=== PATIENT | female | born 1955 ===

== ENCOUNTER 2017-09-10 05:41 | Inpatient (IN) | payer MEDICARE, OTHER ==
[~2017-09-10] VITALS: Ht 149.9 cm; Wt 76.2 kg
[2017-09-10] VITALS (29 sets, daily range): BP systolic 72–126; BP diastolic 36–85
[~2017-09-10 05:41] MED LIST: ASPIR 8181 MG ORAL; ATORVASTATIN CA20 MG ORAL; FUROSEMIDE20 M1 ORAL; GABAPENTIN100 MG ORAL; HYDROCHLOROTHIA25 MG ORAL; LANTUS SOL100 UNIT/1 SUBQ; OMEPRAZOLE20 M2 ORAL; VICTOZA 2-0.6 MG/0.1 SUBQ
[2017-09-10] MEDS ORDERED: Propofol 200mg/20ml IV ONE (06:54)
[2017-09-10] MEDS ORDERED: Dexamethasone 4mg/ml vial ONE (06:54)
[2017-09-10] MEDS ORDERED: EPINEPHrine 1mg/1ml Amp ONE (06:54)
[2017-09-10] MEDS ORDERED: cloNIDine 1000mcg/10ml inj ONE (06:54)
[2017-09-10] MEDS ORDERED: Lidocaine 1% MPF 10mg/ml 5ml ONE (06:54)
[2017-09-10] MEDS ORDERED: Midazolam 2mg/2ml Inj ONE (06:55)
[2017-09-10] MEDS ORDERED: fentaNYL 100 mcg/2 mL IV ONE (06:55)
[2017-09-10] MEDS ORDERED: NeoSporin Gu Irrig 1ml Amp IRRIG ONE (06:56)
[2017-09-10] MEDS ORDERED: Bacitracin 50000 Units Vial ONE (06:56)
--- NOTE | 2017-09-10 07:05 | Pre-Procedure Note/Attestation ---
Pre-Procedure Note/Attestation Complete Prior to Procedure Planned Procedure: right Procedure Narrative: right knee replacement Indications for Procedure Pre-Operative Diagnosis: right knee arthritis Attestation I attest that I discussed the nature of the procedure; its benefits; risks and complications; and alternatives (and the risks and benefits of such alternatives ), prior to the procedure, with the patient (or the patient's legal front office representative). I attest that, if there was a reasonable possibility of needing a blood transfusion, the patient (or the patient's legal front office representative) was given the [facility] standardized written summary, pursuant to the Zeke Dontrell Blood Safety Act ([place] Health and Safety Code # 1645, as amended). I attest that I re-evaluated the patient just prior to the surgery and that there has been no change in the patient's H&P, except as documented below: BRAD GO Sep 10, 2017 07:05
--- NOTE | 2017-09-10 07:06 | Anethesia Preoperative Eval ---
Anesthesia Pre-op PMH/ROS General Date of Evaluation: Sep 10, 2017 Anesthesiologist: Jose ASA Score: ASA 2 Mallampati Score Class I : Soft palate, uvula, fauces, pillars visible Class II: Soft palate, uvula, fauces visible Class III: Soft palate, base of uvula visible Class IV: Only hard plate visible Mallampati Classification: Class II Surgeon: Brooks Diagnosis: Right knee OA Surgical Procedure: Right total knee replacement Anesthesia History: none Family History: no anesthesia problems Allergies: Coded Allergies: No Known Allergies (Unverified , 09/09/17) Medications: see eMAR Past Medical History Cardiovascular: Reports: HTN, other - HLD; Denies: CAD, CA, valve dz, arrhythmia Pulmonary: Denies: asthma, COPD, LYNDA, other Gastrointestinal/Genitourinary: Reports: GERD; Denies: CRI, ESRD, other Neurologic/Psychiatric: Reports: depression/anxiety; Denies: dementia, CVA, TIA, other Endocrine: Reports: DM; Denies: hypothyroidism, steroids, other HEENT: Denies: cataract (L), cataract (R), glaucoma, [place] (L), [place] (R), other Hematology/Immune: Denies: anemia, DVT, bleeding disorder, other Musculoskeletal/Integumentary: Reports: OA; Denies: RA, DJD, DDD, edema, other PSxH Narrative: gastric banding, hysterectomy Anesthesia Pre-op Phys. Exam Physician Exam Last Vital Signs Date Time Temp Pulse Resp B/P (MAP) Pulse Ox O2 Delivery O2 Flow Rate FiO2 09/10/17 06:53 98.7 59 18 126/76 98 Room Air 98.7 Constitutional: NAD Cardiovascular: RRR Respiratory: CTA Airway Exam Mallampati Score: Class II MO: full ROM: full Teeth: missing, broken, loose Anesthesia Pre-op A/P Labs see chart Studies Pre-op Studies: EKG - SB Risk Assessment & Plan Assessment: ASA II Plan: GA with SAB Status Change Before Surgery: No Pre-Antibiotics Drug: Ancef 1g Given Within 1 Hr of Incision: Yes Time Given: 08:00 TORRIE VAUGHAN M.D. Sep 10, 2017 07:06
[2017-09-10] MEDS ORDERED: Morphine Sulfate PF 10 ML ONE (07:10)
[2017-09-10] MEDS ORDERED: Zemuron 50mg/5ml Inj IV ONE (07:10)
[2017-09-10] MEDS ORDERED: Morphine Sulfate 2mg/ml Inj IVP PRN ×2 (07:15)
[2017-09-10] MEDS ORDERED: Morphine Sulfate 4mg/ml Inj IVP PRN (07:15)
[2017-09-10] MEDS ORDERED: HYDROcodone/Acetamin 7.5/325 tab ORAL PRN (07:15)
[2017-09-10] MEDS ORDERED: LR 1000ml 1,000 ML IVLG SCH (07:40)
--- NOTE | 2017-09-10 07:41 | Immediate Post-Op Evaluation ---
Immediate Post-Op Evalulation Immediate Post-Op Evalulation Procedure: Right TKR Date of Evaluation: Sep 10, 2017 Time of Evaluation: 10:24 IV Fluids: 2L Blood Products: 0 Estimated Blood Loss: 300 Urinary Output: 250 Blood Pressure Systolic: 89 Blood Pressure Diastolic: 46 Pulse Rate: 62 Respiratory Rate: 16 O2 Sat by Pulse Oximetry: 99 Temperature (Fahrenheit): 97.9 Pain Score (1-10): 0 Nausea: No Vomiting: No Complications 0 Patient Status: awake, reacts, patent, none Hydration Status: adequate Drug: Ancef 1g Given Within 1 Hr of Incision: Yes Time Given: 08:00 TORRIE VAUGHAN M.D. Sep 10, 2017 07:41
--- NOTE | 2017-09-10 07:42 | 48 Hour Post Anesthesia Eval ---
Post Anesthesia Evaluation Procedure: Right TKR Date of Evaluation: Sep 10, 2017 Airway: patent Nausea: No Vomiting: No Pain Intensity: 0 Hydration Status: adequate Cardiopulmonary Status: at baseline Mental Status/LOC: patient returned to baseline Post-Anesthesia Complications: 0 Follow-up care needed: N/A - further care as per primary team TORRIE VAUGHAN M.D. Sep 10, 2017 07:42
[2017-09-10] MEDS ORDERED: Hydromorphone 0.5mg/0.5ml inj IVP PRN (07:45)
[2017-09-10] MEDS ORDERED: fentaNYL 100 mcg/2 mL IV PRN (07:45)
[2017-09-10] MEDS ORDERED: DiphenhydrAMINE 50mg/ml Inj IVP PRN (07:45)
--- NOTE | 2017-09-10 09:36 | Diagnostic Imaging Report ---
Indication: Pain Technique: XRAY Knee 3v R Comparison: None Findings: There is no evidence of acute fracture. There is degenerative change of the knee with joint space narrowing most pronounced in the medial femorotibial and patellofemoral compartment. There is subchondral sclerosis and tricompartmental osteophyte formation. Multiple loose bodies are noted. There is no large suprapatellar joint effusion. No radiopaque foreign body seen. IMPRESSION: No acute fracture. Degenerative change of the right knee with multiple loose bodies as above.
[2017-09-10] MEDS ORDERED: Bacitracin Oint 15gm Tube TOPIC ONE (10:05)
[2017-09-10] MEDS ORDERED: HYDROcodone/Acetamin 10/325 tab ORAL PRN (15:00)
[2017-09-10] MEDS ORDERED: traMADol 50mg tab ORAL PRN ×2 (15:00)
[2017-09-10] MEDS ORDERED: oxyCODONE 5mg IR tab ORAL PRN ×3 (15:00→15:15)
[2017-09-10] MEDS ORDERED: Morphine Sulfate 4mg/ml Inj IM PRN (15:00)
[2017-09-10] MEDS ORDERED: D5 1/2NS w/KCl 20mEq 1,000 ML IV SCH ×2 (15:30→18:30)
[2017-09-10] MEDS ORDERED: Chloraseptic Spray 20mL Bottle ORAL PRN (16:00)
[2017-09-10] MEDS ORDERED: Sodium Chloride 500ML 500 ML IV ONE (16:15)
--- NOTE | 2017-09-10 16:15 | Consultation ---
DATE OF CONSULTATION: 09/10/2017 CONSULTING PHYSICIAN: Massimo Moore M.D. REFERRING PHYSICIAN: Derrek Guy M.D. REASON FOR CONSULTATION: Acute pain management. HISTORY OF PRESENT ILLNESS: Dear, Dr. Derrek Guy, Thank you kindly for consulting me to evaluate and render an opinion as to how to proceed in the management of the patient's acute postoperative right knee pain status post right total knee arthroplasty. You consulted me to help with this patient's pain control. I reviewed the medical record in detail including advance directives. I saw the patient at bedside. I discussed the case with yourself, Dr. Guy. PAST MEDICAL HISTORY: 1. Acute postoperative right knee pain status post right total knee arthroplasty by Dr. Guy August 2017. 2. Hypertension. 3. Hypercholesterolemia. 4. Gastroesophageal reflux disease. 5. Diabetes. PAST SURGICAL HISTORY: Gastric banding and hysterectomy. ALLERGIES: No known drug allergies. FAMILY HISTORY: Noncontributory. REVIEW OF SYSTEMS: Per Dr. Villalta. PHYSICAL EXAMINATION: VITAL SIGNS: Age 62, , body mass index 31. Blood pressure 96/40, respirations 16, oxygen saturation 100% on supplemental nasal cannula oxygen, pulse 54, afebrile. HEENT: Within normal limits. Normocephalic and atraumatic. HEART: Positive S4. Normal S1 and S2. CHEST: Clear to auscultation. EXTREMITIES: Right knee with dry dressing. Pain with range of motion. GENITOURINARY: Deferred to Dr. Villalta. DIAGNOSTIC TESTING: Laboratory studies in the medical record. IMPRESSION: 1. Acute postoperative right knee pain status post right total knee arthroplasty by Dr. Guy August 2017. 2. . 3. Hypercholesterolemia. 4. Gastroesophageal reflux disease. 5. Diabetes. TREATMENT RECOMMENDATIONS: I have set up a tiered regimen of analgesics to help with pain control. I will start with Ultram 50 mg orally every 8 hours p.r.n. for mild pain. I have ordered [place] 10/325 one tablet orally every three hours p.r.n. for moderate pain. I have ordered oxycodone instant release 5 mg orally every three hours p.r.n. for more severe pain. For 10/10 breakthrough pain, I have also ordered intramuscular dose of morphine 4 mg q.3 hours p.r.n. In case of any headache complaints, I have ordered Fioricet tablets one tablet orally every 8 hours p.r.n. I have also ordered Chloraseptic spray bottle to the bedside to help with any sore throat complaints postoperatively. I have empirically placed the patient on Protonix 40 mg nightly for GI ulcer prophylaxis. I have also ordered p.r.n. dose of Mylanta 30 mL q.6 hours in case of any GERD symptom exacerbation. I have ordered Zofran 4 mg intravenously every four hours as needed for nausea. I have ordered incentive spirometer to encourage good pulmonary toilet. In case of any itching complaints, I have ordered Benadryl 20 mg every 6 hours p.r.n. I will defer the patient's blood pressure and diabetic issues to the hospitalist, Dr. Villalta. Dr. Guy, surgeon has already placed the patient on chemical anticoagulation with 40 mg subcutaneous daily. The patient is at significant risk for deep venous thrombosis and pulmonary embolism complications due to the nature of the surgery. Massimo Moore M.D. DR: Joselito JOB#: [id number] CC:
--- NOTE | 2017-09-10 16:55 | Diagnostic Imaging Report ---
Indication: Pain. Postop Technique: XRAY Knee 1-2v R Comparison: Earlier the same day. Findings: Status post right total knee arthroplasty. Alignment is anatomic. No hardware-related complication is identified. The majority of the previously seen loose bodies are no longer evident. Some loose bodies are still noted projecting adjacent to the lateral tibial talar. Subcutaneous gas and evie are compatible with recent surgery. IMPRESSION: Expected postoperative appearance status post recent right total knee arthroplasty.
[2017-09-10 17:13] LABS: HEMATOCRIT 33.8 % (37.0-47.0); HEMOGLOBIN 11.9 G/DL (12.0-16.0); MEAN CORPUSCULAR VOLUME 92 FL (80-99); PLATELET COUNT 171 K/UL (150-450); RED BLOOD COUNT 3.69 M/UL (4.20-5.40); RED CELL DISTRIBUTION WIDTH 11.8 % (11.6-14.8); WHITE BLOOD COUNT 12.2 K/UL (4.8-10.8)
[2017-09-10 17:15] LABS: BASOPHILS % (AUTO) 0.2 % (0.0-2.0); LYMPHOCYTES % (AUTO) 9.3 % (20.0-45.0); MONOCYTES % (AUTO) 1.8 % (1.0-10.0); NEUTROPHILS % (AUTO) 88.7 % (45.0-75.0)
[2017-09-10] MEDS: ceFAZolin sod 1 GM in D5W 55 ML IV SCH (17:33)
[2017-09-10 17:34] LABS: ANION GAP 9 mmol/L (5-15); BLOOD UREA NITROGEN 11 mg/dL (7-18); CALCIUM 9.3 MG/DL (8.5-10.1); CARBON DIOXIDE 27 MMOL/L (21-32); CHLORIDE 104 MMOL/L (98-107); CREATININE 0.6 MG/DL (0.55-1.30); POTASSIUM 3.8 MMOL/L (3.5-5.1); SODIUM 139 MMOL/L (136-145)
[2017-09-10 17:38] LABS: ALANINE AMINOTRANSFERASE 42 U/L (12-78); ALBUMIN/GLOBULIN RATIO 1.1 (1.0-2.7); ALKALINE PHOSPHATASE 96 U/L (46-116); ASPARTATE AMINO TRANSFERASE 27 U/L (15-37); BILIRUBIN,TOTAL 0.7 MG/DL (0.2-1.0)
[2017-09-10] MEDS: Docusate 100mg/10ml Liq NG SCH (18:12)
--- NOTE | 2017-09-10 20:41 | Cardiology Progress Note ---
Assessment/Plan Assessment/Plan [id number] Objective Last 24 Hour Vital Signs Date Time Temp Pulse Resp B/P (MAP) Pulse Ox O2 Delivery O2 Flow Rate FiO2 09/10/17 18:24 73 106/52 09/10/17 17:54 66 93/41 Room Air 100.0 09/10/17 17:38 64 97/50 09/10/17 17:23 71 83/51 09/10/17 17:08 68 83/45 09/10/17 16:53 70 87/59 09/10/17 16:00 97.5 63 18 95/59 95 97.5 09/10/17 15:25 58 86/49 09/10/17 15:25 97.5 94 18 84/54 Room Air 95.0 97.5 09/10/17 15:00 97.5 61 17 99/45 100 Room Air 97.5 09/10/17 14:30 54 16 96/40 100 Nasal Cannula 3.0 09/10/17 14:15 55 16 85/42 100 Nasal Cannula 3.0 09/10/17 14:00 52 15 82/43 100 Nasal Cannula 3.0 09/10/17 13:30 54 18 76/42 100 Nasal Cannula 3.0 09/10/17 13:15 58 16 77/40 100 Nasal Cannula 3.0 09/10/17 13:00 53 15 72/36 100 Nasal Cannula 3.0 09/10/17 12:45 56 17 75/85 100 Nasal Cannula 3.0 09/10/17 12:30 59 18 80/42 100 Nasal Cannula 3.0 09/10/17 12:15 45 17 90/43 100 Nasal Cannula 3.0 09/10/17 12:00 50 16 96/46 100 Nasal Cannula 3.0 09/10/17 11:45 49 18 87/48 100 Nasal Cannula 3.0 09/10/17 11:30 51 16 91/43 100 Nasal Cannula 3.0 09/10/17 11:15 48 15 95/46 100 Nasal Cannula 3.0 09/10/17 11:00 50 19 86/45 100 Nasal Cannula 3.0 09/10/17 10:45 55 16 93/43 100 Nasal Cannula 6.0 09/10/17 10:30 64 17 90/40 100 Nasal Cannula 2.0 09/10/17 10:25 78 15 106/54 100 Simple Mask 6.0 09/10/17 10:23 208.2 62 16 99 09/10/17 10:19 97.9 67 16 89/40 99 Simple Mask 6.0 97.9 09/10/17 06:53 98.7 59 18 126/76 98 Room Air 98.7 Intake and Output 09/09/17 09/10/17 19:00 07:00 # Voids 1 Laboratory Tests Test 09/10/17 17:00 White Blood Count 12.2 K/UL (4.8-10.8) H Red Blood Count 3.69 M/UL (4.20-5.40) L Hemoglobin 11.9 G/DL (12.0-16.0) L Hematocrit 33.8 % (37.0-47.0) L Mean Corpuscular Volume 92 FL (80-99) Mean Corpuscular Hemoglobin 32.1 PG (27.0-31.0) H Mean Corpuscular Hemoglobin Concent 35.1 G/DL (32.0-36.0) Red Cell Distribution Width 11.8 % (11.6-14.8) Platelet Count 171 K/UL (150-450) Mean Platelet Volume 6.7 FL (6.5-10.1) Neutrophils (%) (Auto) 88.7 % (45.0-75.0) H Lymphocytes (%) (Auto) 9.3 % (20.0-45.0) L Monocytes (%) (Auto) 1.8 % (1.0-10.0) Eosinophils (%) (Auto) 0.0 % (0.0-3.0) Basophils (%) (Auto) 0.2 % (0.0-2.0) Sodium Level 139 MMOL/L (136-145) Potassium Level 3.8 MMOL/L (3.5-5.1) Chloride Level 104 MMOL/L (98-107) Carbon Dioxide Level 27 MMOL/L (21-32) Anion Gap 9 mmol/L (5-15) Blood Urea Nitrogen 11 mg/dL (7-18) Creatinine 0.6 MG/DL (0.55-1.30) Estimat Glomerular Filtration Rate > 60 mL/min (>60) Glucose Level 194 MG/DL (74-106) H Calcium Level 9.3 MG/DL (8.5-10.1) Total Bilirubin 0.7 MG/DL (0.2-1.0) Aspartate Amino Transf (AST/SGOT) 27 U/L (15-37) Alanine Aminotransferase (ALT/SGPT) 42 U/L (12-78) Alkaline Phosphatase 96 U/L (46-116) Total Protein 5.7 G/DL (6.4-8.2) L Albumin 3.0 G/DL (3.4-5.0) L Globulin 2.7 g/dL Albumin/Globulin Ratio 1.1 (1.0-2.7) CARMEN ENCISO Sep 10, 2017 20:41
[2017-09-10] MEDS: NovoLOG Insulin Flexpen SUBQ SCH (22:12)
[2017-09-10] MEDS: HYDROcodone/Acetamin 10/325 tab ORAL PRN (23:52)
[2017-09-11] MEDS: ceFAZolin sod 1 GM in D5W 55 ML IV SCH (00:16)
[2017-09-11 00:30] VITALS: BP 105/51
--- NOTE | 2017-09-11 01:30 | Consultation ---
DATE OF CONSULTATION: 09/10/2017 CARDIOLOGY CONSULTATION CONSULTING PHYSICIAN: Peyman Villalta M.D. REFERRING PHYSICIAN: Derrek William M.D. REASON FOR EVALUATION: Hypotension. HISTORY OF PRESENT ILLNESS: This is a middle-aged female, 62-year-old, who has had history of multiple medical problems including diabetes mellitus. Information from her is obtained from one of the staff here at [facility] who speaks M[place]ese. She apparently has had knee surgery that was performed by Dr. Real rodriguez. Postoperatively, she was noted to have some episodes of hypotension and therefore, this consultation was requested. The patient absolutely denies any chest pain at this time. No PND. No orthopnea. No palpitation. No dizziness or lightheadedness. PAST MEDICAL HISTORY: Positive for diabetes mellitus, positive for high blood pressure. No high cholesterol. No history of heart attack, although previously on evaluation at her doctor's office, she was told that she may have had previously heart attack. No history of cancer. No stroke. No hepatitis. No tuberculosis. No asthma. No emphysema. She has had history of gastric ulcers that was diagnosed. She has had gastric bypass surgery. She has had obesity for which this gastric sleeve resulted in approximately 80 pounds of weight loss. No kidney problems. She has fatty liver. No thyroid problems. No anemia. No arthritis. She has had prior gastric bypass surgery. ALLERGIES: She is not allergic to any medications. SOCIAL HISTORY: She does smoke 4 cigarettes a day. Does not drink alcoholic beverages. REVIEW OF SYSTEMS: GASTROINTESTINAL: She denies any nausea or vomiting. No bowel movements yesterday. GENITOURINARY: Negative. PULMONARY: Negative. CONSTITUTIONAL: Negative. NEUROLOGICAL: Negative. PHYSICAL EXAMINATION: GENERAL: Shows to be middle-aged female, in no respiratory distress. She is lying down flat. The CPM machine on the right leg, working its way. NECK: Supple. No jugular venous distention. LUNGS: Clear to auscultation and percussion. CARDIAC: S1 is normal. S2 is normal. Regular rate and rhythm. No heaves, thrills, gallops, or rubs noted. ABDOMEN: Soft. Positive bowel sounds. Nontender. Obese. Bowel sounds are present. EXTREMITIES: There is no edema. She has dressing on the right leg. CPM machine is being used on the right leg. NEUROLOGICAL: Awake, alert, responsive, and in no apparent respiratory distress. LABORATORY VALUES: Because of her low blood pressure, I had given her some boluses of IV fluids and ordered some labs. The labs show white count of 12.2 with hemoglobin 11.9, and platelet count of 171,000. Sodium 139, potassium 3.8, chloride 104, bicarbonate 27, BUN of 11, creatinine 0.6, and glucose of 194. Calcium is 9.3 and albumin of 3.0. Preoperative labs were reviewed. Her electrocardiogram shows normal sinus rhythm, no ST or T-wave abnormalities being documented. ASSESSMENT AND PLAN: 1. Hypotension, volume-related. 2. Diabetes mellitus. 3. History of hypertension. 4. Obesity, status post gastric bypass surgery. 5. Status post knee replacement. 6. Hyperlipidemia. Dr. Noble, this patient was seen in cardiac consultation. The patient absolutely denies any chest pain or shortness of breath. No cardiovascular symptoms at this time. Blood pressure being on low side possibly was related to volume depletion. The patient is on combination of hydrochlorothiazide and diuretic for some reason as an outpatient, both and also has been on insulin. She has already been restarted on diet, so she will be started on her usual doses of medications now that she has been started on diet. Her aspirin will be on hold. Her diuretics of course will be on hold and boluses of IV fluids administered already. Laboratories will be repeated in the morning as well to make sure there is no drop in hemoglobin to suggest anemia as a cause of hypokalemia, although I doubt that that is the case. I will follow the patient along with you. Peyman Villalta M.D. DR: ADIS JOB#: [id number] CC:
[2017-09-11 04:00] VITALS: BP 101/60
[2017-09-11] MEDS: NovoLOG Insulin Flexpen SUBQ SCH ×4 (06:30→21:32)
[2017-09-11 06:56] LABS: BASOPHILS % (AUTO) 0.4 % (0.0-2.0); HEMOGLOBIN 10.5 G/DL (12.0-16.0); LYMPHOCYTES % (AUTO) 24.2 % (20.0-45.0); MEAN CORPUSCULAR VOLUME 91 FL (80-99); MONOCYTES % (AUTO) 8.4 % (1.0-10.0); PLATELET COUNT 162 K/UL (150-450); RED BLOOD COUNT 3.17 M/UL (4.20-5.40); RED CELL DISTRIBUTION WIDTH 11.7 % (11.6-14.8); WHITE BLOOD COUNT 11.2 K/UL (4.8-10.8)
[2017-09-11 07:16] LABS: INR 1.1 (0.9-1.1)
[2017-09-11 07:24] LABS: ALANINE AMINOTRANSFERASE 45 U/L (12-78); ALBUMIN 2.8 G/DL (3.4-5.0); ALBUMIN/GLOBULIN RATIO 1.2 (1.0-2.7); ALKALINE PHOSPHATASE 89 U/L (46-116); ANION GAP 7 mmol/L (5-15); ASPARTATE AMINO TRANSFERASE 29 U/L (15-37); BILIRUBIN,TOTAL 0.8 MG/DL (0.2-1.0); BLOOD UREA NITROGEN 11 mg/dL (7-18); CARBON DIOXIDE 28 MMOL/L (21-32); CHLORIDE 107 MMOL/L (98-107); CREATININE 0.5 MG/DL (0.55-1.30); POTASSIUM 3.4 MMOL/L (3.5-5.1); SODIUM 142 MMOL/L (136-145)
[2017-09-11 08:00] VITALS: BP 93/50
[2017-09-11] MEDS: Docusate 100mg/10ml Liq NG SCH ×2 (09:25→18:01)
[2017-09-11] MEDS: Enoxaparin 40mg Inj SUBQ SCH (09:26)
[2017-09-11] MEDS: Morphine Sulfate 4mg/ml Inj IM PRN ×3 (09:41→19:43)
[2017-09-11 12:00] VITALS: BP 99/59
--- NOTE | 2017-09-11 13:27 | 48 Hour Post Anesthesia Eval ---
Post Anesthesia Evaluation Procedure: Right TKR Date of Evaluation: Sep 11, 2017 Time of Evaluation: 13:26 Blood Pressure Systolic: 104 0: 62 Pulse Rate: 74 Respiratory Rate: 22 Temperature (Fahrenheit): 97.6 O2 Sat by Pulse Oximetry: 98 Airway: patent Nausea: No Vomiting: No Pain Intensity: 3 Hydration Status: adequate Cardiopulmonary Status: STABLE Mental Status/LOC: patient returned to baseline Follow-up Care/Observations: n/a Post-Anesthesia Complications: none Follow-up care needed: N/A EMMA MARQUES M.D. Sep 11, 2017 13:27
[2017-09-11] MEDS ORDERED: Potassium Chloride 40 MEQ in Sodium Chloride 500ML 550 ML IVPB SCH (14:30)
[2017-09-11 16:00] VITALS: BP 103/59
--- NOTE | 2017-09-11 19:00 | Cardiology Progress Note ---
Assessment/Plan Assessment/Plan 1. Hypotension, volume-related. 2. Diabetes mellitus. 3. History of hypertension. 4. Obesity, status post gastric bypass surgery. 5. Status post knee replacement. 6. Hyperlipidemia. bp is better to day stillkeep off antihypertesnive hgb mildy decreased has been up with pt already has sat up in the chair bs were lelvated lstntie now better on icc victoza not avialbe her is eatign well PT home soon diabetic diet Subjective Cardiovascular: Denies: chest pain, lightheadedness, palpitations Respiratory: Denies: SOB with excertion Gastrointestinal/Abdominal: Reports: constipated; Denies: abdominal pain Genitourinary: Denies: burning Subjective post op pain Objective Last 24 Hour Vital Signs Date Time Temp Pulse Resp B/P (MAP) Pulse Ox O2 Delivery O2 Flow Rate FiO2 09/11/17 16:00 99.3 80 20 103/59 100 Room Air 99.3 09/11/17 13:27 207.7 74 22 98 09/11/17 12:00 98.6 67 18 99/59 99 Room Air 98.6 09/11/17 08:00 98.1 68 18 93/50 97 Room Air 98.1 09/11/17 04:00 98.3 72 19 101/60 100 Room Air 98.3 09/11/17 00:51 97.5 09/11/17 00:30 97.5 62 18 105/51 99 Room Air 97.5 09/10/17 23:52 98.2 09/10/17 20:00 98.2 63 20 110/50 99 Room Air 98.2 General Appearance: no apparent distress, alert, obese Neck: supple Cardiovascular: normal rate, regular rhythm Respiratory/Chest: lungs clear, normal breath sounds Abdomen: normal bowel sounds, non tender, soft Extremities: no swelling, other - right knee dressed Intake and Output 09/10/17 09/11/17 19:00 07:00 Intake Total 1647.5 ml 1180 ml Output Total 500 ml Balance 1147.5 ml 1180 ml Intake Oral 580 ml IV Total 1067.5 ml 1180 ml Output Urine Total 500 ml Laboratory Tests Test 09/11/17 06:20 White Blood Count 11.2 K/UL (4.8-10.8) H Red Blood Count 3.17 M/UL (4.20-5.40) L Hemoglobin 10.5 G/DL (12.0-16.0) L Hematocrit 29.0 % (37.0-47.0) L Mean Corpuscular Volume 91 FL (80-99) Mean Corpuscular Hemoglobin 33.0 PG (27.0-31.0) H Mean Corpuscular Hemoglobin Concent 36.1 G/DL (32.0-36.0) H Red Cell Distribution Width 11.7 % (11.6-14.8) Platelet Count 162 K/UL (150-450) Mean Platelet Volume 6.8 FL (6.5-10.1) Neutrophils (%) (Auto) 67.0 % (45.0-75.0) Lymphocytes (%) (Auto) 24.2 % (20.0-45.0) Monocytes (%) (Auto) 8.4 % (1.0-10.0) Eosinophils (%) (Auto) 0.0 % (0.0-3.0) Basophils (%) (Auto) 0.4 % (0.0-2.0) Prothrombin Time 11.4 SEC (9.30-11.50) Prothromb Time International Ratio 1.1 (0.9-1.1) Sodium Level 142 MMOL/L (136-145) Potassium Level 3.4 MMOL/L (3.5-5.1) L Chloride Level 107 MMOL/L (98-107) Carbon Dioxide Level 28 MMOL/L (21-32) Anion Gap 7 mmol/L (5-15) Blood Urea Nitrogen 11 mg/dL (7-18) Creatinine 0.5 MG/DL (0.55-1.30) L Estimat Glomerular Filtration Rate > 60 mL/min (>60) Glucose Level 114 MG/DL (74-106) H Calcium Level 9.0 MG/DL (8.5-10.1) Total Bilirubin 0.8 MG/DL (0.2-1.0) Aspartate Amino Transf (AST/SGOT) 29 U/L (15-37) Alanine Aminotransferase (ALT/SGPT) 45 U/L (12-78) Alkaline Phosphatase 89 U/L (46-116) Total Protein 5.2 G/DL (6.4-8.2) L Albumin 2.8 G/DL (3.4-5.0) L Globulin 2.4 g/dL Albumin/Globulin Ratio 1.2 (1.0-2.7) CARMEN ENCISO Sep 11, 2017 19:00
[2017-09-11 20:00] VITALS: BP 113/65
[2017-09-11] MEDS: HYDROcodone/Acetamin 10/325 tab ORAL PRN (21:30)
[2017-09-12 00:03] VITALS: BP 108/54
[2017-09-12 04:00] VITALS: BP 130/70
[2017-09-12 05:56] LABS: BASOPHILS % (AUTO) 0.7 % (0.0-2.0); EOSINOPHILS % (AUTO) 0.2 % (0.0-3.0); HEMATOCRIT 29.1 % (37.0-47.0); HEMOGLOBIN 10.1 G/DL (12.0-16.0); LYMPHOCYTES % (AUTO) 33.3 % (20.0-45.0); MEAN CORPUSCULAR VOLUME 94 FL (80-99); MONOCYTES % (AUTO) 10.5 % (1.0-10.0); NEUTROPHILS % (AUTO) 55.2 % (45.0-75.0); PLATELET COUNT 137 K/UL (150-450); RED CELL DISTRIBUTION WIDTH 11.9 % (11.6-14.8); WHITE BLOOD COUNT 8.6 K/UL (4.8-10.8)
[2017-09-12] MEDS: Morphine Sulfate 4mg/ml Inj IM PRN ×4 (05:58→23:46)
[2017-09-12] MEDS: NovoLOG Insulin Flexpen SUBQ SCH ×4 (06:30→20:07)
[2017-09-12] MEDS ORDERED: Chloraseptic Spray 20mL Bottle ORAL ONE (07:54)
[2017-09-12] MEDS ORDERED: HYDROcodone/Acetamin 10/325 tab ORAL ONE (07:54)
[2017-09-12 08:00] VITALS: BP 106/62
[2017-09-12] MEDS: Docusate 100mg/10ml Liq NG SCH ×2 (08:35→17:31)
[2017-09-12] MEDS: Enoxaparin 40mg Inj SUBQ SCH (08:39)
[2017-09-12] MEDS ORDERED: Chloraseptic Spray 20mL Bottle ORAL PRN (10:00)
[2017-09-12 12:00] VITALS: BP 121/83
--- NOTE | 2017-09-12 12:15 | Progress Note ---
DATE: 09/12/2017 ACUTE PAIN MANAGEMENT PHYSICIAN PROGRESS NOTE MEDICATIONS: Medication administration record reviewed. Medications include Fioricet, Mylanta, Catapres, Benadryl, Colace, Lovenox, Pepcid, Neurontin, [place], diabetic medications including insulin, morphine, NicoDerm patch, Zofran, Roxicodone, Protonix, Chloraseptic, Ultram. LABORATORY STUDIES: From this morning, September 12, 2017, shows normal white count of 9, hematocrit 29, platelets 137,000. Sodium 142, potassium 3.4, chloride 107, bicarbonate 28, BUN 11, creatinine 0.5, glucose 114, calcium 9.0, total bilirubin 0.8, AST 29, ALT 45, alkaline phosphatase 89, total protein 5.2, albumin 2.8. INR 1.0. VITAL SIGNS: T-max 100.1 last night at 8 p.m., currently 99.0, pulse 92, respirations 17, blood pressure 130/70, oxygen saturation 98% on room air. I saw the patient at the bedside with Citizen [place]-speaking speech teacher. The patient's also was present at the bedside providing good social support. The patient is more alert and oriented x3. I discussed the case with the overnight nurse, ALDEN Smith. The patient received doses of morphine and [place] overnight. The patient has been making very poor progress with physical therapy. She is very poorly motivated to ambulate. She does not seem to have any adverse side effects with [place] and morphine. Therefore, I would continue these two agents presently. I did encourage the patient to request the medications more frequently. Her last dose of morphine was two hours ago with her last dose of [place] over 10 hours ago. Oxycodone could be trialed as well. I will discontinue orders for tramadol. The patient is complaining of sore throat. I will ask the nurse to place a Chloraseptic spray bottle at the bedside. I will continue her morphine dose as ordered currently. She remains on b.i.d. Neurontin. Dr. Guy has the patient on Lovenox for DVT prophylaxis. I have ordered nicotine patch for nicotine-withdrawal agitation, which may be exacerbating her pain complaint. I did encourage aggressive usage of incentive spirometer with her low-grade fever overnight. Her normal white count suggests that her fevers are contributed by postoperative atelectasis and chronic obesity. I will provide a prescription for for outpatient usage. Massimo Moore M.D. DR: Marii JOB#: [id number] CC:
[2017-09-12 16:00] VITALS: BP 140/97
--- NOTE | 2017-09-12 18:35 | Cardiology Progress Note ---
Assessment/Plan Assessment/Plan 1. Hypotension, volume-related. 2. Diabetes mellitus. 3. History of hypertension. 4. Obesity, status post gastric bypass surgery. 5. Status post knee replacement. 6. Hyperlipidemia. bp is ok still keep off antihypertesnive hgb mildy decreased bs 109-219 on iss victoza not avialbe here PT home soon diabetic diet antiemetic stool softer , mom tonite last iv pain med this am per rn liquid vicoden is not avialbe here pain meds are given per dr gorman she looks comfortable has not asked of extra pain meds per rn since this am nutritonal supplemt glucerna if not eat linzess not availabel here d/w rn Subjective Subjective she say her pain is controlled , she apparently has had liquid vicoden before after ther gastric by pass which helped her she want to get that but that is not available per pharmacy poor appetite has walked in halls no bm i have reviiewed she has no special diet on consistency Objective Last 24 Hour Vital Signs Date Time Temp Pulse Resp B/P (MAP) Pulse Ox O2 Delivery O2 Flow Rate FiO2 09/12/17 16:00 99.6 82 18 140/97 97 Room Air 99.6 09/12/17 12:21 98.6 09/12/17 12:00 98.6 79 19 121/83 96 Room Air 98.6 09/12/17 11:51 99.0 09/12/17 09:19 99.0 09/12/17 08:20 99.0 09/12/17 08:00 100.6 91 19 106/62 94 Room Air 100.6 09/12/17 04:00 99.0 92 17 130/70 98 Room Air 99.0 09/12/17 00:03 99.2 85 17 108/54 96 Room Air 99.2 09/11/17 20:00 101.1 90 19 113/65 99 Room Air 101.1 General Appearance: no apparent distress, alert Neck: supple Cardiovascular: normal rate, regular rhythm Respiratory/Chest: lungs clear Abdomen: normal bowel sounds, non tender, soft Extremities: no swelling Intake and Output 09/11/17 09/12/17 19:00 07:00 Intake Total 1625 ml 425 ml Output Total 1500 ml Balance 125 ml 425 ml Intake Oral 300 ml IV Total 1625 ml 125 ml Output Urine Total 1500 ml # Voids 3 Laboratory Tests Test 09/12/17 05:00 White Blood Count 8.6 K/UL (4.8-10.8) Red Blood Count 3.10 M/UL (4.20-5.40) L Hemoglobin 10.1 G/DL (12.0-16.0) L Hematocrit 29.1 % (37.0-47.0) L Mean Corpuscular Volume 94 FL (80-99) Mean Corpuscular Hemoglobin 32.5 PG (27.0-31.0) H Mean Corpuscular Hemoglobin Concent 34.7 G/DL (32.0-36.0) Red Cell Distribution Width 11.9 % (11.6-14.8) Platelet Count 137 K/UL (150-450) L Mean Platelet Volume 6.9 FL (6.5-10.1) Neutrophils (%) (Auto) 55.2 % (45.0-75.0) Lymphocytes (%) (Auto) 33.3 % (20.0-45.0) Monocytes (%) (Auto) 10.5 % (1.0-10.0) H Eosinophils (%) (Auto) 0.2 % (0.0-3.0) Basophils (%) (Auto) 0.7 % (0.0-2.0) Prothrombin Time 10.6 SEC (9.30-11.50) Prothromb Time International Ratio 1.0 (0.9-1.1) Microbiology Date/Time Source Procedure Growth Status 09/10/17 06:35 Nasal Nares MRSA Culture - Final NO METHICILLIN RESISTANT STAPH AUREUS... Complete CARMEN ENCISO Sep 12, 2017 18:35
[2017-09-12] MEDS ORDERED: Milk of Magnesia 30ml Ud ORAL ONE (19:00)
[2017-09-12 20:00] VITALS: BP 118/71
[2017-09-12] MEDS ORDERED: NS 500ML ONE (20:41)
[2017-09-12] MEDS ORDERED: Tubing IV Secondary IV ONE (20:41)
[2017-09-13] VITALS: BP 127/73
[2017-09-13 04:00] VITALS: BP 130/78
[2017-09-13] MEDS: NovoLOG Insulin Flexpen SUBQ SCH ×4 (06:21→20:51)
[2017-09-13 07:39] LABS: HEMOGLOBIN 9.8 G/DL (12.0-16.0); MEAN CORPUSCULAR VOLUME 94 FL (80-99); MONOCYTES % (AUTO) 8.8 % (1.0-10.0); NEUTROPHILS % (AUTO) 47.1 % (45.0-75.0); PLATELET COUNT 138 K/UL (150-450); RED BLOOD COUNT 2.99 M/UL (4.20-5.40); RED CELL DISTRIBUTION WIDTH 11.8 % (11.6-14.8); WHITE BLOOD COUNT 8.4 K/UL (4.8-10.8)
[2017-09-13 07:43] LABS: ALANINE AMINOTRANSFERASE 36 U/L (12-78); ALBUMIN 2.4 G/DL (3.4-5.0); ALBUMIN/GLOBULIN RATIO 0.8 (1.0-2.7); ALKALINE PHOSPHATASE 94 U/L (46-116); ANION GAP 4 mmol/L (5-15); ASPARTATE AMINO TRANSFERASE 27 U/L (15-37); BILIRUBIN,TOTAL 0.7 MG/DL (0.2-1.0); BLOOD UREA NITROGEN 6 mg/dL (7-18); CALCIUM 8.5 MG/DL (8.5-10.1); CARBON DIOXIDE 30 MMOL/L (21-32); CHLORIDE 108 MMOL/L (98-107); CREATININE 0.4 MG/DL (0.55-1.30); POTASSIUM 3.7 MMOL/L (3.5-5.1); SODIUM 142 MMOL/L (136-145)
[2017-09-13 08:00] VITALS: BP 132/70
[2017-09-13] MEDS: Docusate 100mg/10ml Liq NG SCH ×2 (08:57→18:00)
[2017-09-13] MEDS: HYDROcodone/Acetamin 10/325 tab ORAL PRN ×2 (08:58→18:39)
[2017-09-13] MEDS: Enoxaparin 40mg Inj SUBQ SCH (08:59)
[2017-09-13] MEDS: Morphine Sulfate 4mg/ml Inj IM PRN ×3 (10:12→22:34)
[2017-09-13 12:47] VITALS: BP 104/50
[2017-09-13 16:00] VITALS: BP 108/61
[2017-09-13] MEDS ORDERED: Milk of Magnesia 30ml Ud ORAL ONE (16:15)
[2017-09-13] MEDS ORDERED: Magnesium Citrate Liq Btl ORAL ONE (16:15)
[2017-09-13] MEDS ORDERED: Magnesium Citrate Liq Btl ORAL PRN ×2 (16:45→20:45)
[2017-09-13] MEDS ORDERED: Milk of Magnesia 30ml Ud ORAL PRN (16:45)
[2017-09-13 20:00] VITALS: BP 130/68
--- NOTE | 2017-09-13 22:36 | Cardiology Progress Note ---
Assessment/Plan Assessment/Plan comofrtable \pain under control laxatives Subjective Subjective The patient is resting in bed leg is elevated compalining on constipation Objective Last 24 Hour Vital Signs Date Time Temp Pulse Resp B/P (MAP) Pulse Ox O2 Delivery O2 Flow Rate FiO2 09/13/17 22:34 98.1 09/13/17 20:13 98.1 09/13/17 16:00 98.1 78 19 108/61 Room Air 98.1 09/13/17 12:47 98.1 80 20 104/50 98 Room Air 98.1 09/13/17 08:00 98.6 75 20 132/70 97 Room Air 98.6 09/13/17 04:00 98.0 73 18 130/78 96 Room Air 98.0 09/13/17 00:00 98.1 90 18 127/73 97 Room Air 98.1 General Appearance: no apparent distress EENT: PERRL/EOMI Neck: supple Rhythm: NSR Cardiovascular: normal rate Respiratory/Chest: lungs clear Abdomen: soft Extremities: other - right leg post op, elevated Intake and Output 09/12/17 09/13/17 19:00 07:00 Intake Total 2435 ml 1500 ml Output Total 200 ml Balance 2235 ml 1500 ml Intake Oral 810 ml IV Total 1625 ml 1500 ml Output Urine Total 200 ml # Voids 3 2 Laboratory Tests Test 09/13/17 06:30 White Blood Count 8.4 K/UL (4.8-10.8) Red Blood Count 2.99 M/UL (4.20-5.40) L Hemoglobin 9.8 G/DL (12.0-16.0) L Hematocrit 28.0 % (37.0-47.0) L Mean Corpuscular Volume 94 FL (80-99) Mean Corpuscular Hemoglobin 32.7 PG (27.0-31.0) H Mean Corpuscular Hemoglobin Concent 34.8 G/DL (32.0-36.0) Red Cell Distribution Width 11.8 % (11.6-14.8) Platelet Count 138 K/UL (150-450) L Mean Platelet Volume 7.1 FL (6.5-10.1) Neutrophils (%) (Auto) 47.1 % (45.0-75.0) Lymphocytes (%) (Auto) 42.0 % (20.0-45.0) Monocytes (%) (Auto) 8.8 % (1.0-10.0) Eosinophils (%) (Auto) 1.0 % (0.0-3.0) Basophils (%) (Auto) 1.0 % (0.0-2.0) Prothrombin Time 10.1 SEC (9.30-11.50) Prothromb Time International Ratio 1.0 (0.9-1.1) Sodium Level 142 MMOL/L (136-145) Potassium Level 3.7 MMOL/L (3.5-5.1) Chloride Level 108 MMOL/L (98-107) H Carbon Dioxide Level 30 MMOL/L (21-32) Anion Gap 4 mmol/L (5-15) L Blood Urea Nitrogen 6 mg/dL (7-18) L Creatinine 0.4 MG/DL (0.55-1.30) L Estimat Glomerular Filtration Rate > 60 mL/min (>60) Glucose Level 119 MG/DL (74-106) H Calcium Level 8.5 MG/DL (8.5-10.1) Total Bilirubin 0.7 MG/DL (0.2-1.0) Aspartate Amino Transf (AST/SGOT) 27 U/L (15-37) Alanine Aminotransferase (ALT/SGPT) 36 U/L (12-78) Alkaline Phosphatase 94 U/L (46-116) Total Protein 5.3 G/DL (6.4-8.2) L Albumin 2.4 G/DL (3.4-5.0) L Globulin 2.9 g/dL Albumin/Globulin Ratio 0.8 (1.0-2.7) L Zonia Romo MD Sep 13, 2017 22:36
[2017-09-14] VITALS: BP 119/68
[2017-09-14 04:00] VITALS: BP 127/76
[2017-09-14] MEDS: NovoLOG Insulin Flexpen SUBQ SCH ×4 (06:30→20:58)
[2017-09-14] MEDS: Morphine Sulfate 4mg/ml Inj IM PRN ×2 (06:33→21:00)
[2017-09-14 08:00] VITALS: BP 105/84
[2017-09-14] MEDS: Docusate 100mg/10ml Liq NG SCH ×2 (09:00→17:40)
[2017-09-14] MEDS: Enoxaparin 40mg Inj SUBQ SCH (09:10)
[2017-09-14] MEDS: HYDROcodone/Acetamin 10/325 tab ORAL PRN ×2 (09:13→13:35)
[2017-09-14 12:00] VITALS: BP 105/84
[2017-09-14 16:00] VITALS: BP 102/59
--- NOTE | 2017-09-14 17:36 | Cardiology Report ---
APPROVED REPORT EKG Measurement Heart [id number] Normal sinus rhythm with sinus arrhythmia Normal ECG
[2017-09-14 18:00] LABS: ANION GAP 5 mmol/L (5-15); BLOOD UREA NITROGEN 9 mg/dL (7-18); CALCIUM 8.4 MG/DL (8.5-10.1); CARBON DIOXIDE 30 MMOL/L (21-32); CHLORIDE 107 MMOL/L (98-107); CREATININE 0.5 MG/DL (0.55-1.30); POTASSIUM 3.6 MMOL/L (3.5-5.1); SODIUM 142 MMOL/L (136-145)
[2017-09-14 20:17] VITALS: BP 123/73
--- NOTE | 2017-09-14 21:34 | Cardiology Progress Note ---
Assessment/Plan Assessment/Plan continue physical therapy Subjective Subjective Tfeels better, eating lunchm, had 3 bm lst night after Mg citrate walked today Objective Last 24 Hour Vital Signs Date Time Temp Pulse Resp B/P (MAP) Pulse Ox O2 Delivery O2 Flow Rate FiO2 09/14/17 20:17 98.4 84 20 123/73 99 98.4 09/14/17 16:00 98.1 81 18 102/59 99 98.1 09/14/17 14:34 98.0 09/14/17 13:35 98.0 09/14/17 12:00 98.0 69 18 105/84 99 98.0 09/14/17 09:13 98.2 09/14/17 08:00 98.2 78 19 105/84 98 98.2 09/14/17 07:03 97.8 09/14/17 06:33 97.8 09/14/17 04:00 97.8 78 20 127/76 98 97.8 09/14/17 00:00 98.1 72 20 119/68 96 98.1 09/13/17 22:34 98.1 General Appearance: no apparent distress EENT: PERRL/EOMI Neck: non-tender Rhythm: NSR Cardiovascular: normal rate Respiratory/Chest: lungs clear Abdomen: normal bowel sounds Extremities: other - right knee dressing, mild LE edema Intake and Output 09/13/17 09/14/17 19:00 07:00 Intake Total 845 ml 1570 ml Output Total 302 ml Balance 543 ml 1570 ml Intake Oral 220 ml 320 ml IV Total 125 ml 1250 ml Tube Feeding 500 ml Output Urine Total 302 ml Stool Total 0 ml # Voids 4 # Bowel Movements 3 Laboratory Tests Test 09/14/17 07:20 09/14/17 17:28 Prothrombin Time 10.0 SEC (9.30-11.50) Prothromb Time International Ratio 1.0 (0.9-1.1) Sodium Level 142 MMOL/L (136-145) Potassium Level 3.6 MMOL/L (3.5-5.1) Chloride Level 107 MMOL/L (98-107) Carbon Dioxide Level 30 MMOL/L (21-32) Anion Gap 5 mmol/L (5-15) Blood Urea Nitrogen 9 mg/dL (7-18) Creatinine 0.5 MG/DL (0.55-1.30) L Estimat Glomerular Filtration Rate > 60 mL/min (>60) Glucose Level 167 MG/DL (74-106) H Calcium Level 8.4 MG/DL (8.5-10.1) L Zonia Romo MD Sep 14, 2017 21:34
[2017-09-15 00:31] VITALS: BP 120/68
[2017-09-15 04:52] VITALS: BP 141/73
[2017-09-15] MEDS: NovoLOG Insulin Flexpen SUBQ SCH ×4 (06:13→21:00)
[2017-09-15 08:00] VITALS: BP 130/71
[2017-09-15] MEDS: Docusate 100mg/10ml Liq NG SCH ×2 (08:34→17:50)
[2017-09-15] MEDS: Enoxaparin 40mg Inj SUBQ SCH (08:35)
[2017-09-15] MEDS: Morphine Sulfate 4mg/ml Inj IM PRN ×2 (09:03→15:03)
--- NOTE | 2017-09-15 10:51 | Cardiology Report ---
APPROVED REPORT EXAM: Two-dimensional and M-mode echocardiogram with Doppler and color Doppler. INDICATION Post-Op M-Mode DIMENSIONS IVSd1.1 (0.7-1.1cm)Left Atrium (MM)4.0 (1.6-4.0cm) LVDd4.4 (3.5-5.6cm)Aortic Root2.7 (2.0-3.7cm) PWd0.8 (0.7-1.1cm)Aortic Cusp Exc.1.8 (1.5-2.0cm) LVDs2.6 (2.5-4.0cm) PWs1.2 cm Normal left ventricular chamber size, systolic function and wall motion. Left ventricular ejection fraction estimated to be 55 %. Borderline left ventricular hypertrophy. Anterior Echo-free space, may be due to pericardial fat or effusion. All other cardiac chamber sizes are within normal limits. Focal aortic valve sclerosis with adequate cusp excursion. Thickened mitral valve leaflets with normal excursion. Mild mitral annulus and aortic root calcification. Normal pulmonic valve structure. Normal tricuspid valve structure. IVC is normal in size withh physiological collapse. A color flow and spectral Doppler study was performed and revealed: No aortic insufficiency. Trace mitral regurgitation. Mitral inflow indicate normal left ventricular diastolic function. Mild to moderate tricuspid regurgitation. Tricuspid systolic velocities suggests peak right ventricular systolic pressure of 38 mmHg, consistent with mild pulmonary hypertension. No pulmonic regurgitation present.
[2017-09-15 12:00] VITALS: BP 137/78
[2017-09-15 16:00] VITALS: BP 131/70
--- NOTE | 2017-09-15 19:55 | Cardiology Progress Note ---
Assessment/Plan Assessment/Plan 1. Hypotension, volume-related. 2. Diabetes mellitus. 3. History of hypertension. 4. Obesity, status post gastric bypass surgery. 5. Status post knee replacement. 6. Hyperlipidemia. bp is ok still keep off antihypertesnive hgb mildy decreased bs 108-157on iss victoza not avialbe here diabetic diet antiemetic home tontie need home health for PT will ahve spring encaser arrange for tomorrow lovenoxi injection for dvt Subjective Cardiovascular: Denies: chest pain, lightheadedness, palpitations Respiratory: Denies: shortness of breath Gastrointestinal/Abdominal: Denies: abdominal pain, constipated Genitourinary: Denies: burning Subjective wants to go home tonite Objective Last 24 Hour Vital Signs Date Time Temp Pulse Resp B/P (MAP) Pulse Ox O2 Delivery O2 Flow Rate FiO2 09/15/17 16:00 98.6 82 19 131/70 100 Room Air 98.6 09/15/17 15:33 98.5 09/15/17 12:00 98.5 88 19 137/78 100 Room Air 98.5 09/15/17 09:03 98.5 09/15/17 08:00 98.0 75 20 130/71 98 Room Air 98.0 09/15/17 04:52 98.5 83 18 141/73 98 98.5 09/15/17 00:31 98.2 79 19 120/68 98 98.2 09/14/17 20:17 98.4 84 20 123/73 99 98.4 General Appearance: alert Neck: supple Cardiovascular: normal rate, regular rhythm Respiratory/Chest: lungs clear, normal breath sounds Abdomen: normal bowel sounds, non tender, soft Extremities: no swelling Intake and Output 09/14/17 09/15/17 19:00 07:00 Intake Total 1900 ml 360 ml Balance 1900 ml 360 ml Intake Oral 650 ml 360 ml IV Total 1250 ml # Voids 3 8 # Bowel Movements 2 2 CARMEN ENCISO Sep 15, 2017 19:55
[2017-09-15] MEDS ORDERED: LOVENOX10 M4 SUBQ (19:58)
[2017-09-15 20:45] VITALS: BP 153/81
[2017-09-15] MEDS ORDERED: D5 1/2NS 1000ml IV ONE (21:24)
--- NOTE | 2017-09-17 00:45 | Operative Note - Dictated ---
DATE OF OPERATION: 09/10/2017 NOTE: POOR AUDIO PREOPERATIVE DIAGNOSIS: Right knee end-stage osteoarthritis. POSTOPERATIVE DIAGNOSIS: Right knee end-stage osteoarthritis. PROCEDURES: Right knee total knee replacement with [employer] Person[employer] prosthesis. SURGEON: Derrek Guy M.D. BISQUE FINISHER: Unknown. TACTICAL DECEPTION PLANS OFFICER: Yassine Flowers M.D. PREOPERATIVE NOTE: This is a pleasant lady, who has been having right knee OA. I explained to her the surgery and the risks being infection, bleeding, anesthetic risks, neurovascular damage, DVT, PE, failure of the operation. The patient agreed. Consents were obtained. OPERATIVE ROOM NOTE: Under the benefit of endotracheal intubation, general anesthetic, and IV sedation, the patient was given a gram of Ancef. The patient's knee was prepped and draped in appropriate manner. A midline incision was made, incised through subcutaneous tissue down to medial retinaculum. I then everted the patella. The patella looked great upon removing osteophytes. I then drilled down the center on the femur on the AP and lateral planes making a distal femur cut. I then sized the femur to with external rotation. I made my anterior cut and then posterior cut and then my oblique cut. The size was perfect size C. I then worked off the tibia taking 2 mm off the low side, which is the medial side and made my tibial plateau cut. The mechanical axis was perfect. I then sliced a 10 spacer in between with a smallest tibia and cemented the tibia with a short stem after getting the actual component, cemented the femur in, and placed a trial in. We had full stability, full range of motion. I was very pleased. It went from 0 to 160 with no instability. There were no complications. I denervated around the patella. The patella was smaller and the surface looked good and had great tracking. I closed the retinaculum with #1 Vicryl, subcutaneous tissue with 2-0 Vicryl, skin with evie. The patient went to recovery room in stable condition. Derrek Guy M.D. DR: NOHEMI JOB#: [id number] CC:
--- NOTE | 2017-09-17 11:04 | Discharge Summary ---
Discharge Summary Hospital Course Date of Admission Sep 10, 2017 at 05:41 Date of Discharge Sep 15, 2017 at 21:25 Admitting Diagnosis R knee end stage osteoarthritis Reason for Hospitalization: elective surgery HPI Tiffany Marrufo is a 62 year old female who was admitted on Sep 10, 2017 at 05:41 for end stage Right Knee Osteoarthritis Patient was admitted for elective surgery Consultations dr Villalta-IM, iphone developer dr Moore- pain specialist Procedures s/p 09/10/ by dr GO,BAL Right knee total knee replacement with [employer] Person[employer] prosthesis. Hospital Course s/p surgery pain management, pain specialist followed pain controlled initially with low BP at home on combination with HcTz and Lasix, diuretics held cardio followed hold anti-HTN meds bolus IVF BP closely monitored, stabilized statin continued BS management with SSI, Victoza that patient is at home not available here DVT prophylaxis with Lovenox GI prophylaxis OOB with PT/OT IS while in the bed, taught and encourage to use fall precautions, PT/OT, ambulated dressing C/D/I need HH for PT and Lovenox injections HH arranged pt was stable for dc with outpt f/up with surgeon FINAL DIAGNOSIS Right knee end-stage osteoarthritis. s/p 09/10 Right knee total knee replacement with [employer] Person[employer] prosthesis hypotension (volume related) with hx of HTN DM GERD obesity, s/p gastric bypass hypercholesteremia Discharge Medications New Medications: Enoxaparin* (Lovenox*) 40 Mg/0.4 Ml Inj 40 MG SUBQ DAILY for 5 Days, #5 AMP Continued Medications: Aspirin* (Aspir 81*) 81 Mg Tablet. 81 MG ORAL DAILY, TAB (This prescription has been renewed) Atorvastatin Calcium* (Atorvastatin Calcium*) 20 Mg Tablet 20 MG ORAL BEDTIME, TAB (This prescription has been renewed) Gabapentin* (Gabapentin*) 100 Mg Capsule 200 MG ORAL BIDAC, CAP (This prescription has been renewed) Insulin Glargine (Lantus) 100 Unit/1 Ml Insuln.pen 30 SUBQ DAILY, #1 EA 0 Refills (This prescription has been renewed) Liraglutide (Victoza 2-Herberth) 0.6 Mg/0.1 Ml Pen.injctr 0.6 MG SUBQ DAILY, EA 0 Refills (This prescription has been renewed) Omeprazole (Omeprazole) 20 Mg Capsule. 20 MG ORAL DAILY, CAP (This prescription has been renewed) Discontinued Medications: Furosemide* (Lasix*) 20 Mg Tablet 20 MG ORAL DAILY, TAB Hydrochlorothiazide* (Hydrochlorothiazide*) 25 Mg Tablet 25 MG ORAL DAILY, TAB Discharge Condition Upon Discharge: stable Discharge Disposition Patient was discharged to Home with Home Health(06) Discharge Instructions Discharge Instructions Special Instructions I have been assigned to complete a D/C Summary on this account. I was not involved in the patient management Magdalene Ceron NP ([place]te[place]) September 17, 2017 11:04
== END 2017-09-15 21:25 | disposition home health service (06) | DRG 470 ==
LOC: SDSOVERFLO 05:41 → 3E 15:03
PROC: 0SRC0JZ Replacement of Right Knee Joint with Synthetic Substitute, Open Approach (ICD-10-PCS; principal; 2017-09-10 07:30)
DX: M17.11 Unilateral primary osteoarthritis, right knee (principal); I10 Essential (primary) hypertension; E11.9 Type 2 diabetes mellitus without complications; E66.9 Obesity, unspecified; Z98.84 Bariatric surgery status; I95.89 Other hypotension; G89.18 Other acute postprocedural pain; K21.9 Gastro-esophageal reflux disease without esophagitis; E78.00 Pure hypercholesterolemia, unspecified; Z79.4 Long term (current) use of insulin; F17.200 Nicotine dependence, unspecified, uncomplicated
CPT/HCPCS: 36415; 80048; 80053; 82962; 85025; 85610; 86850; 86900; 86901; 86920; 87081; 93005; 93306; 94003; 94150; J1815; J2250; J2405

== ENCOUNTER 2018-10-20 06:14 | Inpatient (IN) | payer MEDICARE, OTHER ==
[~2018-10-20] VITALS: Ht 149.9 cm; Wt 78.0 kg
[2018-10-20] VITALS (13 sets, daily range): BP systolic 122–173; BP diastolic 53–85
[~2018-10-20 06:14] MED LIST changes: +LOVENOX10 M4 SUBQ
[2018-10-20] MEDS ORDERED: fentaNYL 100 mcg/2 mL IV ONE (07:06)
[2018-10-20] MEDS ORDERED: NeoSporin Gu Irrig 1ml Amp IRRIG ONE (07:09)
[2018-10-20] MEDS ORDERED: Bacitracin 50000 Units Vial ONE (07:09)
--- NOTE | 2018-10-20 07:29 | Anethesia Preoperative Eval ---
Anesthesia Pre-op PMH/ROS General Date of Evaluation: Oct 20, 2018 Time of Evaluation: 07:00 Anesthesiologist: mirza ASA Score: ASA 2 Mallampati Score Class I : Soft palate, uvula, fauces, pillars visible Class II: Soft palate, uvula, fauces visible Class III: Soft palate, base of uvula visible Class IV: Only hard plate visible Mallampati Classification: Class II Surgeon: Latrell Diagnosis: knee pain Surgical Procedure: I&D right knee Anesthesia History: none Family History: no anesthesia problems Allergies: Coded Allergies: No Known Allergies (Unverified , 09/09/17) Medications: see eMAR Patient NPO?: Yes NPO Date: Oct 19, 2018 NPO Time: 2100 Past Medical History Cardiovascular: Denies: HTN, CAD, AR, valve dz, arrhythmia, other Gastrointestinal/Genitourinary: Reports: GERD; Denies: CRI, ESRD, other Neurologic/Psychiatric: Reports: CVA Endocrine: Reports: DM; Denies: hypothyroidism, steroids, other HEENT: Denies: cataract (L), cataract (R), glaucoma, [place] (L), [place] (R), other Hematology/Immune: Reports: anemia; Denies: DVT, bleeding disorder, other Musculoskeletal/Integumentary: Reports: OA PSxH Narrative: Knee Replacement 09/04 Anesthesia Pre-op Phys. Exam Physician Exam Last Vital Signs Date Time Temp Pulse Resp B/P (MAP) Pulse Ox O2 Delivery O2 Flow Rate FiO2 10/20/18 07:11 Room Air 10/20/18 06:46 97.8 53 18 133/59 (83) 100 Constitutional: NAD Neurologic: CN 2-12 intact Cardiovascular: RRR Respiratory: CTA Gastrointestinal: S/NT/ND Airway Exam Mallampati Classification 2 Mallampati Score: Class II MO: full ROM: full Teeth: missing, broken Dentures: no upper, no lower Anesthesia Pre-op A/P Labs Accucheck FS =95 Studies Pre-op Studies: EKG - SR Risk Assessment & Plan Plan: General Status Change Before Surgery: No Pre-Antibiotics Drug: ancef Given Within 1 Hr of Incision: Yes Time Given: 08:10 Olivia Aviles CRNA Oct 20, 2018 07:29
--- NOTE | 2018-10-20 07:42 | Pre-Procedure Note/Attestation ---
Pre-Procedure Note/Attestation Indications for Procedure Pre-Operative Diagnosis: right knee abscess Attestation I attest that I discussed the nature of the procedure; its benefits; risks and complications; and alternatives (and the risks and benefits of such alternatives ), prior to the procedure, with the patient (or the patient's legal accounting representative). I attest that, if there was a reasonable possibility of needing a blood transfusion, the patient (or the patient's legal accounting representative) was given the [facility] standardized written summary, pursuant to the [place] Blood Safety Act ([place] Health and Safety Code # 1645, as amended). I attest that I re-evaluated the patient just prior to the surgery and that there has been no change in the patient's H&P, except as documented below: Derrek Guy MD Oct 20, 2018 07:42
--- NOTE | 2018-10-20 07:44 | Brief Operative Note ---
Immediate Post Operative Note Operative Note Pre-op Diagnosis: right knee abscess Procedure: right knee i and d Post-op Diagnosis: abscess knee Post-op Diagnosis: same as pre-op Surgeon: francisco Anesthesia: general Specimen: yes Complications: none Condition: stable Fluids: y Estimated Blood Loss: none Drains: none Implant(s) used?: No Derrek Guy MD Oct 20, 2018 07:44
[2018-10-20] MEDS ORDERED: Morphine Sulfate 2mg/ml Inj(IV/IM USE ONLY) IVP PRN ×2 (07:45)
[2018-10-20] MEDS ORDERED: LR 1000ml ONE (08:00)
[2018-10-20] MEDS ORDERED: Bacitracin 50000 Units Vial IRRIG ONE (08:10)
[2018-10-20] MEDS ORDERED: Propofol 200mg/20ml IV ONE (08:12)
[2018-10-20] MEDS ORDERED: Lidocaine 1% MPF 10mg/ml 5ml ONE (08:12)
[2018-10-20] MEDS ORDERED: Ketorolac 30mg Inj ONE (08:12)
[2018-10-20] MEDS ORDERED: Metoclopramide 10mg/2ml Inj ONE (08:12)
[2018-10-20] MEDS ORDERED: NS Irrig 4000ml IRRIG ONE (08:43)
--- NOTE | 2018-10-20 08:45 | Immediate Post-Op Evaluation ---
Immediate Post-Op Evalulation Immediate Post-Op Evalulation Procedure: i&d right knee Date of Evaluation: Oct 20, 2018 Time of Evaluation: 08:44 IV Fluids: 300 Blood Pressure Systolic: 122 Blood Pressure Diastolic: 60 Pulse Rate: 70 Respiratory Rate: 14 O2 Sat by Pulse Oximetry: 98 Nausea: No Vomiting: No Complications none Patient Status: awake, reacts, patent Hydration Status: adequate Drug: ancef Given Within 1 Hr of Incision: Yes Time Given: 08:10 Olivia Aviles CRNA Oct 20, 2018 08:45
[2018-10-20] MEDS: fentaNYL 100 mcg/2 mL IV PRN ×2 (09:05→09:25)
--- NOTE | 2018-10-20 09:25 | NUR ---
TOTAL FENTANYL 50 MCG GIVEN FOR C/O PAIN . WASTED 50 MCG INSTEAD OF 7S MCG
[2018-10-20] MEDS: HYDROcodone/Acetamin 7.5/325 tab ORAL PRN ×2 (10:23→17:15)
--- NOTE | 2018-10-20 10:30 | NUR ---
NURSE NOTES: Patient is in bed awake and able to verbalize needs. Stable. Complains of pain, will administer medication as ordered. Breathing is even and unlabored. VSS. Surgical dressing clean, dry, and intact. Knee immobilizer in place as ordered. Patient oriented to room, call light, and unit. Patient encouraged to use call light for assistance, verbalized understanding. Patient is in bed in locked and lowest position with call light within reach. Will continue to monitor.
--- NOTE | 2018-10-20 11:07 | Cardiology Progress Note ---
Assessment/Plan Assessment/Plan 1. right knee abcess now s/p I and D 2. Diabetes mellitus. 3. History of hypertension. 4. Obesity, status post gastric bypass surgery. 5. Status post knee replacement. 6. Hyperlipidemia. resume home meds dvt ppx ambuate when allow accuchks iv abx will contact ID [id number] Objective Last 24 Hour Vital Signs Date Time Temp Pulse Resp B/P (MAP) Pulse Ox O2 Delivery O2 Flow Rate FiO2 10/20/18 09:43 60 18 145/63 100 Nasal Cannula 3 10/20/18 09:38 97.8 10/20/18 09:35 59 15 157/67 100 Nasal Cannula 3 10/20/18 09:25 59 17 173/68 100 Nasal Cannula 3 10/20/18 09:10 57 14 154/65 100 Simple Mask 6 10/20/18 09:00 58 16 153/66 100 Simple Mask 6 10/20/18 08:55 54 13 149/69 100 Simple Mask 6 10/20/18 08:50 59 17 149/61 100 Simple Mask 6 10/20/18 08:45 66 16 159/66 100 Simple Mask 6 10/20/18 08:45 70 14 98 10/20/18 08:40 98.1 64 14 170/85 100 Simple Mask 6 10/20/18 07:11 Room Air 10/20/18 06:46 97.8 53 18 133/59 (83) 100 Intake and Output 10/19/18 10/20/18 19:00 07:00 # Voids 1 Peyman Villalta MD Oct 20, 2018 11:07
[2018-10-20] MEDS: D5 1/2NS w/KCl 20mEq 1,000 ML IV SCH (11:17)
[2018-10-20] MEDS ORDERED: NovoLOG Insulin Flexpen SUBQ SCH (11:30)
--- NOTE | 2018-10-20 12:10 | NUR ---
NURSE NOTES: Patient refused novolog insulin. Paged Dr. Villalta. Awaiting response.
--- NOTE | 2018-10-20 13:09 | NUR ---
PT EVALUATION NOTE Patient seen for initial evaluation, see complete evaluation for details. Patient presents s/p R knee I & D with R knee pain and impaired mobility. Patient will benefit from skilled inpatient PT intervention to address strength, balance, safety and functional mobility. Anticipate discharge home with family assistance once medically cleared by MD. Recommend home PT follow-up. Patient appears to have necessary DME at home. Addendum: 10/20/18 at 1310 by TRENTON BIRD PT Amended: Links added.
[2018-10-20] MEDS: Morphine Sulfate 4mg/ml Inj (IV USE ONLY) IVP PRN ×2 (13:41→20:37)
[2018-10-20] MEDS ORDERED: ceFAZolin sod 1 GM in D5W 55 ML IV SCH (16:00)
--- NOTE | 2018-10-20 16:54 | Infectious Diseases Prog Note ---
Assessment/Plan Assessment/Plan Full consult dictated: right knee abscess s/p I/D hx right knee replacement dm, htn, ? dyslipidemia, ? gerd, ? neuropathy vancomycin and cefepime check labs and cultures thank you Subjective Allergies: Coded Allergies: No Known Allergies (Unverified , 09/09/17) Objective Vital Signs Last 24 Hour Vital Signs Date Time Temp Pulse Resp B/P (MAP) Pulse Ox O2 Delivery O2 Flow Rate FiO2 10/20/18 12:02 98.2 63 20 122/53 (76) 99 10/20/18 09:43 60 18 145/63 100 Nasal Cannula 3 10/20/18 09:38 97.8 10/20/18 09:35 59 15 157/67 100 Nasal Cannula 3 10/20/18 09:25 59 17 173/68 100 Nasal Cannula 3 10/20/18 09:10 57 14 154/65 100 Simple Mask 6 10/20/18 09:00 58 16 153/66 100 Simple Mask 6 10/20/18 08:55 54 13 149/69 100 Simple Mask 6 10/20/18 08:50 59 17 149/61 100 Simple Mask 6 10/20/18 08:45 66 16 159/66 100 Simple Mask 6 10/20/18 08:45 70 14 98 10/20/18 08:40 98.1 64 14 170/85 100 Simple Mask 6 10/20/18 07:11 Room Air 10/20/18 06:46 97.8 53 18 133/59 (83) 100 Height (Feet): 4 Height (Inches): 11.00 Weight (Pounds): 150 Current Medications Medications (Trade) Dose Ordered Sig/Kael Route PRN Reason Start Time Stop Time Status Last Admin Dose Admin Acetaminophen/ Hydrocodone Bitart ([place] 7.5/325) 1 tab Q4H PRN ORAL Mild Pain (Pain Scale 1-3) 10/20/18 07:45 10/27/18 07:44 10/20/18 10:23 Atorvastatin Calcium (Lipitor) 20 mg BEDTIME ORAL 10/20/18 21:00 11/19/18 20:59 Cefepime HCl 2 gm/ Dextrose 100 ml @ 200 mls/hr Q12HR IVPB 10/20/18 18:00 10/27/18 17:59 Dextrose (Dextrose 50%) 25 ml Q30M PRN IV Hypoglycemia 10/20/18 11:15 11/19/18 11:14 Dextrose (Dextrose 50%) 50 ml Q30M PRN IV Hypoglycemia 10/20/18 11:15 11/19/18 11:14 Dextrose/ Electrolytes 1,000 ml @ 75 mls/hr [id number] IV 10/20/18 11:00 11/19/18 10:59 10/20/18 11:17 Insulin Aspart (NovoLOG) BEFORE MEALS AND HS SUBQ 10/20/18 11:30 11/19/18 11:29 Morphine Sulfate (Morphine Sulfate) 1 mg Q4H PRN IVP Mild Pain (Pain Scale 1-3) 10/20/18 07:45 10/27/18 07:44 Morphine Sulfate (Morphine Sulfate) 2 mg Q4H PRN IVP Moderate Pain (Pain Scale 4-6) 10/20/18 07:45 10/27/18 07:44 Morphine Sulfate (Morphine Sulfate) 4 mg Q4H PRN IVP Severe Pain (Pain Scale 7-10) 10/20/18 07:45 10/27/18 07:44 10/20/18 13:41 Vancomycin HCl (Vanco rx to dose) 1 ea DAILY PRN MISC Per rx protocol 10/20/18 16:30 11/19/18 16:29 Vancomycin HCl 1 gm/Dextrose 275 ml @ 183.708 mls/hr Q12HR@1000,2200 IVPB 10/21/18 10:00 10/26/18 09:59 Vancomycin HCl/ Dextrose 275 ml @ 137.5 mls/ hr ONCE ONCE IVPB 10/20/18 19:30 10/20/18 21:29 Siomara Sandoval MD Oct 20, 2018 16:54
--- NOTE | 2018-10-20 17:00 | Consultation ---
DATE OF CONSULTATION: 10/20/2018 CARDIOLOGY CONSULTATION CONSULTING PHYSICIAN: Peyman Villalta M.D. REFERRING PHYSICIAN: Derrek Guy M.D. REASON FOR REFERRAL: Postoperative medical care. HISTORY OF PRESENT ILLNESS: This is a elderly female who is known to me from one prior hospital visit. The patient on the last hospitalization underwent surgery by Dr. Noble and apparently has subsequently been diagnosed with abscess and was admitted and underwent irrigation and debridement of the abscess today by . I was contacted to follow her postoperatively for medical care. The patient does not have any chest pain, does not have any shortness of breath. No PND. No orthopnea. No palpitations. No dizziness or lightheadedness on standing. PAST MEDICAL HISTORY: Positive for diabetes, high blood pressure. She has had history of gastric bypass surgery for obesity, gastric sleeve resulted in approximately 80 pounds of weight loss. No other medical problems. ALLERGIES: She is not allergic to any medications. SOCIAL HISTORY: She smokes a few cigarettes per day. Does not drink alcoholic beverages. REVIEW OF SYSTEMS: GASTROINTESTINAL: Denies any nausea, vomiting, diarrhea, or constipation. GENITOURINARY: discomfort on urination. No blood in the urine. PULMONARY: Denies any coughing or wheezing. CONSTITUTIONAL: No fever, chills, or night sweats. PHYSICAL EXAMINATION: GENERAL: Shows to be elderly female, in no respiratory distress, sitting up in the bed. VITAL SIGNS: Blood pressure 145/63, heart rate of 60, temperature 97.8. NECK: Supple. No jugular venous distention. LUNGS: Clear to auscultation and percussion. CARDIAC: S1 is normal. S2 is normal. Regular rate and rhythm. No heaves, thrills, gallops, or rubs are noted. ABDOMEN: Soft, nontender. Positive bowel sounds. EXTREMITIES: Pneumatic compression stockings on both legs below the knee. LABORATORY AND DIAGNOSTIC DATA: Laboratories none postoperatively available. Preop laboratories were noted in the chart. Blood sugar 157, BUN 14, creatinine 0.7, sodium 139, potassium 3.8, chloride 105, bicarb 27. White count of 15.7, hemoglobin 11.7, and platelet count of 270,000. Urinalysis appears to be normal. HCG was negative. INR is 1 and PTT of 23. EKG performed preoperatively apparently shows sinus rhythm with slight axis ASSESSMENT AND PLAN: 1. Knee abscess status post incision and drainage. 2. Diabetes mellitus. 3. Hypertension. 4. Obesity status post gastric bypass surgery. 5. Status post knee replacement. 6. Hyperlipidemia. Dr. Noble this patient was seen in cardiac consultation. Cardiovascularly appears to be doing relatively well. Vital signs are stable. Maria A medications will be resumed whatever is available at this hospital. DVT prophylaxis, ambulate when allowed. Accu-Cheks on a regular basis. IV antibiotics, we will contact Infectious Diseases. Peyman Villalta M.D. DR: Marcos JOB#: [id number] CC:
[2018-10-20] MEDS ORDERED: Vancomycin 1.5gm Premix IVPB ONE (19:30)
--- NOTE | 2018-10-20 20:03 | NUR ---
HAND-OFF: Report given to Shelia RUANO. Patient is stable.
--- NOTE | 2018-10-20 20:04 | NUR ---
NURSE NOTES: Patient is in bed awake and able to verbalize needs. Stable. Complains of some pain, will administer medication as ordered. Breathing is even and unlabored. VSS. Surgical dressing site is clean, dry, and intact. Knee immobilizer in place as ordered. Patient encouraged to use call light for assistance, verbalized understanding. Patient is in bed in locked and lowest position with call light within reach. Will continue to monitor.
--- NOTE | 2018-10-20 20:15 | Consultation ---
DATE OF CONSULTATION: 10/20/2018 INFECTIOUS DISEASE CONSULTATION CONSULTING PHYSICIAN: Siomara Sandoval M.D. ATTENDING PHYSICIAN: Derrek Guy M.D. REFERRING PHYSICIAN: Peyman Villalta M.D. REASON FOR CONSULTATION: Right knee abscess. CHIEF COMPLAINT: The patient's chief complaint coming in to the hospital is right knee infection with history of knee replacement. HISTORY OF PRESENT ILLNESS: This is a very pleasant 63-year-old female, who is non-Telugu speaking. The patient has a history of right knee replacement and was in 2018. The patient was admitted for what looks like right knee infection or possible right knee infection. The patient is status post surgery for the immediate operative note. The patient has a right knee abscess and is status post I and D. Infectious Disease consultation is requested. The patient was placed on vancomycin and cefepime empirically for MRSA and gram-negative coverage. Cultures from the surgery are pending. I also discussed case with nursing staff and the patient and the patient's son who translated. MAR was noted. Orders were noted. Notes and records were reviewed. REVIEW OF SYSTEMS: CONSTITUTIONAL: She has no fever or chills. No night sweats or weight loss. Again, limited communication with the patient. Her right knee pain is controlled. HEAD AND NECK: No head pain or neck pain. CARDIAC: No chest pain. GASTROINTESTINAL: No nausea, vomiting, or diarrhea. No abdominal pain. GENITOURINARY: No Serrano. PULMONARY: No congestion or shortness of breath. SKIN: No rash or itching. EXTREMITY: Her right knee pain is controlled. NEUROLOGIC: No seizures. Review of systems is otherwise limited. PAST MEDICAL HISTORY: The patient has a past medical history of the following. The patient has a past medical history of diabetes mellitus. She has a history of hypertension. Other past medical history includes right knee replacement I believe in 2018. She also has history of possible gastroesophageal reflux disease, possible dyslipidemia, and also possible neuropathy based on the medications she is on. MEDICATIONS: Upon reviewing the MAR, she is on the following medications. She is on vancomycin, atorvastatin, and Lipitor. She is on cefepime and insulin. She is on antibiotics, vancomycin and cefepime. Outside medications were noted and reconciliated. She was on aspirin, atorvastatin, gabapentin, insulin, omeprazole, and Victoza. ALLERGIES: No known drug allergies. No antibiotic allergies. SOCIAL HISTORY: She says she smokes, but not much. No history of intravenous drug abuse or alcohol use, but history of smoking in the past. FAMILY HISTORY: Noncontributory. Negative for exposure to tuberculosis or cancer. PHYSICAL EXAMINATION: VITAL SIGNS: Temperature is 98.2, pulse rate is 63, respiratory rate 20, blood pressure is 122/53, and saturation 99%. GENERAL: Alert, responsive, and in no acute distress. Seems to be oriented. HEAD AND NECK: Oral exam, no thrush. Eye exam, no icterus. Neck is supple. No JVD. Normocephalic. HEART: Regular. No obvious gallop or murmur. ABDOMEN: Soft. Positive bowel sounds. Nontender. LUNGS: Clear bilaterally. No rhonchi or rales. SKIN: No rash. MUSCULOSKELETAL: Right knee is covered. Legs are without cellulitis. PERIPHERAL VASCULAR: No gangrene or cyanosis. GENITOURINARY: No Serrano. No CVA tenderness. LINE SITES: Without phlebitis. NEUROLOGIC: Intact and nonfocal. LABORATORY AND DIAGNOSTIC DATA: Laboratory data is as follows. White count 8.4 and hemoglobin 9.8. Creatinine 0.5. Cultures from the surgery of the right knee are pending or intraoperative cultures are pending. Imaging was noted. Right knee x-ray was noted consistent with expected postoperative appearance. ASSESSMENT AND PLAN: 1. The patient has per the operative report, a right knee abscess. The patient is status post I and D and I believe debridement and irrigation. The patient will be placed empirically for MRSA and gram-negative coverage with vancomycin and cefepime. We will continue vancomycin and cefepime for right knee abscess status post I and D and check cultures intraoperatively. Also, we will communicate with Luis and Dr. Villalta about length of antibiotic treatment based on operative findings. I will await the full operative report. Continue vancomycin and cefepime for right knee abscess status post I and D pending cultures. 2. Monitor laboratories closely. 3. Diabetes. 4. Hypertension. 5. Blood sugar and blood pressure treatment per primary. 6. Possible gastroesophageal reflux disease number. 7. Possible dyslipidemia. 8. Possible neuropathy. 9. No known allergies. 10. Social history is positive for smoking in the past. 11. MAR was noted. 12. Case was discussed with RN. 13. Family history is noncontributory. 14. Continue treatment per primary consultants. Siomara Sandoval M.D. DR: FAUZIA JOB#: [id number] CC: KRISTIN
[2018-10-20] MEDS: Atorvastatin 20mg tab ORAL SCH (20:43)
[2018-10-20] MEDS ORDERED: Atorvastatin 20mg tab ORAL SCH (21:00)
[2018-10-21 00:06] VITALS: BP 132/70
[2018-10-21] MEDS: Morphine Sulfate 4mg/ml Inj (IV USE ONLY) IVP PRN ×4 (00:35→17:58)
[2018-10-21] MEDS: D5 1/2NS w/KCl 20mEq 1,000 ML IV SCH ×2 (00:35→13:57)
[2018-10-21 04:00] VITALS: BP 132/73
[2018-10-21] MEDS: LINZESS 290 MCG ORAL SCH (05:58)
[2018-10-21 06:06] LABS: BASOPHILS % (AUTO) 0.9 % (0.0-2.0); EOSINOPHILS % (AUTO) 3.8 % (0.0-3.0); HEMATOCRIT 34.1 % (37.0-47.0); HEMOGLOBIN 11.3 G/DL (12.0-16.0); LYMPHOCYTES % (AUTO) 40.8 % (20.0-45.0); MEAN CORPUSCULAR VOLUME 91 FL (80-99); MONOCYTES % (AUTO) 8.2 % (1.0-10.0); NEUTROPHILS % (AUTO) 46.3 % (45.0-75.0); PLATELET COUNT 176 K/UL (150-450); RED BLOOD COUNT 3.75 M/UL (4.20-5.40); RED CELL DISTRIBUTION WIDTH 12.8 % (11.6-14.8); WHITE BLOOD COUNT 6.8 K/UL (4.8-10.8)
[2018-10-21 06:44] LABS: ANION GAP 4 mmol/L (5-15); BLOOD UREA NITROGEN 10 mg/dL (7-18); CALCIUM 8.9 MG/DL (8.5-10.1); CARBON DIOXIDE 30 MMOL/L (21-32); CHLORIDE 108 MMOL/L (98-107); CREATININE 0.6 MG/DL (0.55-1.30); POTASSIUM 4.2 MMOL/L (3.5-5.1); SODIUM 142 MMOL/L (136-145)
--- NOTE | 2018-10-21 07:30 | NUR ---
NURSE NOTES: Patient is in bed awake and able to verbalize needs. Patient is stable. Complains of pain and asks for pain meds, will administer pain medication as ordered. Patient encouraged to use call light for assistance. Ice packs placed on knee and immobilizer is in place as ordered, and ice pack placed on head for comfort measures. Patient is in bed in locked and lowest position with call light within reach. Will continue to monitor.
--- NOTE | 2018-10-21 07:40 | NUR ---
HAND-OFF: Report given to ALDEN Muller.
[2018-10-21 08:00] VITALS: BP 157/85
--- NOTE | 2018-10-21 09:30 | NUR ---
NURSE NOTES: Patient complained of chest pain. Notified Dr. Villalta. Awaiting orders.
--- NOTE | 2018-10-21 10:00 | NUR ---
NURSE NOTES: Received new orders to get EKG, orders read back and carried out. EKG is normal. Dr. Villalta aware. No new orders at this time. Patient is stable. Patient denies chest pain at this time.
[2018-10-21] MEDS: Vancomycin 1gm/D5W 275ml IVPB SCH ×4 (10:07→22:23)
--- NOTE | 2018-10-21 10:40 | NUR ---
PT NOTE Attempted to see patient for PT treatment. Patient declining to participate with PT at this time, c/o headache and dizziness. Patient requested to be placed in CPM; placed in CPM 0-50 degrees with good alignment. Yohana RUANO notified of patient's status, will follow up in p.m.
--- NOTE | 2018-10-21 11:30 | NUR ---
NURSE NOTES: Patient refused accucheck and told RN that she only checks her blood sugar once in the morning and once at night while at home. Patient does not want to change her schedule. Patient appears anxious. Patient is stable. All safety measures provided. Will continue to monitor.
[2018-10-21 12:00] VITALS: BP 154/78
--- NOTE | 2018-10-21 12:00 | NUR ---
NURSE NOTES: Encouraged patient to use incentive spirometer. Patient refused.
--- NOTE | 2018-10-21 13:47 | NUR ---
CASE MANAGEMENT:REVIEW 10/20/18 63 YR OLD FEMALE HERE FOR ELECTIVE SURGERY SI: RT KNEE ABSCESS 97.9 66 18 132/73 99% ON RA H/H-11.3/34.1 GLUCOSE+120 IS: TO SURGERY FOR: RT KNEE I AND D : TO MED/SURG 3 [facility] POST OP 10/21/18 SI: POD #1 S/P I&D OF RT KNEE ABSCESS 97.9 66 18 132/73 99% ON RA H/H-11.3/34.1 GLUCOSE+120 IS: IV VANCOMYCIN Q12 IV CEFEPIME Q12 IVF@75/HR PROTONIX PO Q12 NEURONTIN PO BID IV MORPHINE Q4HRS PRN : MED/SURG STATUS 3 [facility]
[2018-10-21] MEDS: ALPRAZolam 0.5mg tab ORAL PRN (13:57)
--- NOTE | 2018-10-21 14:54 | Cardiology Report ---
APPROVED REPORT EKG Measurement Heart [id number] Normal sinus rhythm Normal ECG
[2018-10-21 16:00] VITALS: BP 117/50
--- NOTE | 2018-10-21 16:07 | 48 Hour Post Anesthesia Eval ---
Post Anesthesia Evaluation Procedure: i&d right knee Date of Evaluation: Oct 21, 2018 Time of Evaluation: 16:06 Blood Pressure Systolic: 162 0: 83 Pulse Rate: 72 Respiratory Rate: 18 Temperature (Fahrenheit): 97.9 O2 Sat by Pulse Oximetry: 95 Airway: patent Nausea: No Vomiting: No Pain Intensity: 2 Hydration Status: adequate Cardiopulmonary Status: Stable Mental Status/LOC: patient returned to baseline Follow-up Care/Observations: 0 Post-Anesthesia Complications: 0 Follow-up care needed: N/A Luca Sutherland MD Oct 21, 2018 16:07
--- NOTE | 2018-10-21 18:00 | NUR ---
NURSE NOTES: Patient refused gabapentin because she does not take the medication twice a day as prescribed at home. Patient also told nurse that she wants her insulin at 7pm because that is the way she takes it at home. RN and charge nurse gave thorough medication teaching. Patient does not agree and continues to refuse. Will continue to monitor.
--- NOTE | 2018-10-21 18:45 | NUR ---
NURSE NOTES: Charge nurse received new orders to do accuchecks q12h at 7am and 7pm and to administer 0.6mg Victoza at 7pm. Patient and patient's son made aware by RN. Will carry out orders.
--- NOTE | 2018-10-21 19:30 | NUR ---
NURSE NOTES: Received report from ALDEN Muller and rounds made. Received pt laying in bed, AOX4, pain level 7/10, refused pain medication. IV L AC # 20 patent and intact. IV fluid infusing as ordered. Surgical dressing C/D/I. No distress noted. Safety measures maintained. Will continue to monitor.
[2018-10-21 20:00] VITALS: BP 132/65
--- NOTE | 2018-10-21 20:24 | NUR ---
HAND-OFF: Report given to Sriram RUANO. Patient is stable.
--- NOTE | 2018-10-21 21:15 | Cardiology Progress Note ---
Assessment/Plan Assessment/Plan 1. right knee abcess now s/p I and D 2. Diabetes mellitus. 3. History of hypertension. 4. Obesity, status post gastric bypass surgery. 5. Status post knee replacement. 6. Hyperlipidemia. resume home meds dvt ppx walked today accuchks bid has iv abx per id d/w rn on several occasion pt want to have home meds requests to go to snf Subjective Cardiovascular: Denies: chest pain, lightheadedness, palpitations Respiratory: Denies: shortness of breath Gastrointestinal/Abdominal: Denies: abdominal pain Genitourinary: Denies: burning Objective Last 24 Hour Vital Signs Date Time Temp Pulse Resp B/P (MAP) Pulse Ox O2 Delivery O2 Flow Rate FiO2 10/21/18 19:20 67 18 98 Room Air 21 10/21/18 16:07 72 18 95 10/21/18 16:00 98.6 75 16 117/50 (72) 97 10/21/18 12:00 98.8 79 16 154/78 (103) 100 10/21/18 09:25 72 162/83 10/21/18 09:00 Room Air 10/21/18 08:00 98.5 78 17 157/85 (109) 90 10/21/18 07:02 76 18 95 Room Air 21 10/21/18 06:28 97.9 10/21/18 04:00 97.9 66 18 132/73 (92) 99 10/21/18 00:06 97.9 63 16 132/70 (90) 98 General Appearance: no apparent distress, alert Neck: supple Cardiovascular: normal rate Respiratory/Chest: lungs clear Abdomen: normal bowel sounds, non tender, soft Extremities: no swelling Intake and Output 10/20/18 10/21/18 18:59 06:59 Intake Total 1000 ml 1405 ml Output Total 10 ml 1400 ml Balance 990 ml 5 ml Intake Oral 480 ml IV Total 1000 ml 925 ml Output Urine Total 1400 ml Estimated Blood Loss 10 ml # Voids 2 Laboratory Tests Test 10/21/18 04:40 White Blood Count 6.8 K/UL (4.8-10.8) Red Blood Count 3.75 M/UL (4.20-5.40) L Hemoglobin 11.3 G/DL (12.0-16.0) L Hematocrit 34.1 % (37.0-47.0) L Mean Corpuscular Volume 91 FL (80-99) Mean Corpuscular Hemoglobin 30.1 PG (27.0-31.0) Mean Corpuscular Hemoglobin Concent 33.1 G/DL (32.0-36.0) Red Cell Distribution Width 12.8 % (11.6-14.8) Platelet Count 176 K/UL (150-450) Mean Platelet Volume 7.0 FL (6.5-10.1) Neutrophils (%) (Auto) 46.3 % (45.0-75.0) Lymphocytes (%) (Auto) 40.8 % (20.0-45.0) Monocytes (%) (Auto) 8.2 % (1.0-10.0) Eosinophils (%) (Auto) 3.8 % (0.0-3.0) H Basophils (%) (Auto) 0.9 % (0.0-2.0) Prothrombin Time 10.7 SEC (9.30-11.50) Prothromb Time International Ratio 1.0 (0.9-1.1) Sodium Level 142 MMOL/L (136-145) Potassium Level 4.2 MMOL/L (3.5-5.1) Chloride Level 108 MMOL/L (98-107) H Carbon Dioxide Level 30 MMOL/L (21-32) Anion Gap 4 mmol/L (5-15) L Blood Urea Nitrogen 10 mg/dL (7-18) Creatinine 0.6 MG/DL (0.55-1.30) Estimat Glomerular Filtration Rate > 60 mL/min (>60) Glucose Level 120 MG/DL (74-106) H Calcium Level 8.9 MG/DL (8.5-10.1) Microbiology Date/Time Source Procedure Growth Status 10/20/18 08:06 Knee Right Gram Stain Pending Resulted 10/20/18 08:06 Knee Right Aerobic Culture - Preliminary NO GROWTH AFTER 24 HOURS Resulted 10/20/18 08:06 Knee Right Anaerobic Culture Pending Resulted Peyman Villalta MD Oct 21, 2018 21:14
[2018-10-21] MEDS: Atorvastatin 20mg tab ORAL SCH (21:33)
[2018-10-22] VITALS: BP 132/65
[2018-10-22] MEDS: D5 1/2NS w/KCl 20mEq 1,000 ML IV SCH ×3 (03:12→19:48)
[2018-10-22 04:00] VITALS: BP 138/67
--- NOTE | 2018-10-22 05:30 | NUR ---
NURSE NOTES: POD #2 dressing change done to right knee per MD order. Applied 4x4 and tegaderm, CDI.
[2018-10-22] MEDS: LINZESS 290 MCG ORAL SCH (07:03)
--- NOTE | 2018-10-22 07:10 | NUR ---
NURSE NOTES: Report received from Sriram Manuel RN, rounds made. Patient resting in semi-fowlers position in bed. Alert, oriented x4, calm. No SOB on O2 2LNC, no NV, denies pain at this time. IVF infusing to RFA D5 1/2 +20 KCL at 75 ml/hr, site asymptomatic. Demonstrated IS use, patient returned demonstration, requires further reminder and encouragement. Right knee dressing, CDI. LLE SCD on. CMS +, skin warm, wiggles, hand grasps/pedal pushes equal 4/5, no NT, pulses palpable. Purewik in place, to suction, y/cl urine noted. Call light in reach, bed in lowest position, will continue to monitor.
--- NOTE | 2018-10-22 07:33 | NUR ---
HAND-OFF: Report given to ALDEN Melvin. Pt in stable condition.
--- NOTE | 2018-10-22 07:34 | NUR ---
HAND-OFF: Report given to ALDEN Crooks. Pt in stable condition.
[2018-10-22 08:00] VITALS: BP 131/65
[2018-10-22] MEDS: HYDROcodone/Acetamin 7.5/325 tab ORAL PRN (09:18)
--- NOTE | 2018-10-22 09:45 | NUR ---
PT NOTE Attempted to see patient for PT treatment, patient declining to participate at this time, c/o not feeling well and headache. Reinforced importance of participating with therapy however patient continued to decline. Ngozi RUANO notified, will follow up in p.m.
[2018-10-22] MEDS ORDERED: Vancomycin 1.25gm Premix IVPB SCH (11:00)
[2018-10-22] MEDS ORDERED: Tubing IV Secondary IV ONE (11:13)
[2018-10-22 12:00] VITALS: BP 107/61
--- NOTE | 2018-10-22 14:41 | Infectious Diseases Prog Note ---
Assessment/Plan Assessment/Plan ASSESSMENT AND PLAN: 1. right knee abscess, s/p I/D - intra-operative culture negative to date - change antibiotic to ancef (discontinue vancomycin and cefepime) - monitor labs - ortho f/u, check final operative report 3. Diabetes. 4. Hypertension. 5. Blood sugar and blood pressure treatment per primary. 6. Possible gastroesophageal reflux disease number. 7. Possible dyslipidemia. 8. Possible neuropathy. 9. No known allergies. 10. Social history is positive for smoking in the past. 11. MAR was noted. 12. Case was discussed with RN. 13. Family history is noncontributory. 14. Continue treatment per primary consultants. Subjective Constitutional: Denies: fever HEENT: Denies: congestion Respiratory: Denies: shortness of breath Cardiovascular: Denies: chest pain Gastrointestinal/Abdominal: Denies: nausea, vomiting, diarrhea Genitourinary: Denies: dysuria, hematuria, frequency Neurologic: Denies: headache Psychiatric: Denies: depression Skin: Denies: rash Hematologic: Denies: bleeding Musculoskeletal: Denies: pain Allergies: Coded Allergies: No Known Allergies (Unverified , 09/09/17) Objective Vital Signs Last 24 Hour Vital Signs Date Time Temp Pulse Resp B/P (MAP) Pulse Ox O2 Delivery O2 Flow Rate FiO2 10/22/18 12:00 98.6 53 19 107/61 (76) 100 10/22/18 09:00 Room Air 10/22/18 08:00 97.8 59 20 131/65 (87) 100 10/22/18 04:00 97.1 71 18 138/67 (90) 98 10/22/18 00:00 97.9 74 18 132/65 (87) 98 10/21/18 21:00 Room Air 10/21/18 20:00 97.7 72 18 132/65 (87) 99 10/21/18 19:20 67 18 98 Room Air 21 10/21/18 16:07 72 18 95 10/21/18 16:00 98.6 75 16 117/50 (72) 97 Height (Feet): 4 Height (Inches): 11.00 Weight (Pounds): 172 General Appearance: no acute distress HEENT: normocephalic, atraumatic, anicteric, mucous membranes moist Respiratory/Chest: lungs clear, normal breath sounds, no respiratory distress, no accessory muscle use Cardiovascular: normal rate, regular rhythm, no gallop/murmur, no JVD Abdomen: normal bowel sounds, soft, non tender, no organomegaly, non distended Genitourinary: other - no bradley Extremities: no cyanosis, other - right knee covered Skin: no rash Neurologic/Psychiatric: media reconciliation specialist II-XII grossly normal, alert, oriented x 3, responsive Lymphatic: no neck adenopathy Musculoskeletal: no effusion Objective none Microbiology Date/Time Source Procedure Growth Status 10/20/18 06:30 Nasal Nares MRSA Culture - Final NO METHICILLIN RESISTANT STAPH AUREUS... Complete 10/20/18 08:06 Knee Right Gram Stain - Final Resulted 10/20/18 08:06 Knee Right Aerobic Culture - Preliminary NO GROWTH AFTER 48 HOURS Resulted 10/20/18 08:06 Knee Right Anaerobic Culture - Preliminary NO GROWTH AFTER 48 HOURS Resulted Microbiology Date/Time Source Procedure Growth Status 10/20/18 06:30 Nasal Nares MRSA Culture - Final NO METHICILLIN RESISTANT STAPH AUREUS... Complete 10/20/18 08:06 Knee Right Gram Stain - Final Resulted 10/20/18 08:06 Knee Right Aerobic Culture - Preliminary NO GROWTH AFTER 48 HOURS Resulted 10/20/18 08:06 Knee Right Anaerobic Culture - Preliminary NO GROWTH AFTER 48 HOURS Resulted Labs Test 10/21/18 04:40 10/22/18 05:05 10/22/18 08:52 White Blood Count 6.8 K/UL (4.8-10.8) Red Blood Count 3.75 M/UL (4.20-5.40) Hemoglobin 11.3 G/DL (12.0-16.0) Hematocrit 34.1 % (37.0-47.0) Mean Corpuscular Volume 91 FL (80-99) Mean Corpuscular Hemoglobin 30.1 PG (27.0-31.0) Mean Corpuscular Hemoglobin Concent 33.1 G/DL (32.0-36.0) Red Cell Distribution Width 12.8 % (11.6-14.8) Platelet Count 176 K/UL (150-450) Mean Platelet Volume 7.0 FL (6.5-10.1) Neutrophils (%) (Auto) 46.3 % (45.0-75.0) Lymphocytes (%) (Auto) 40.8 % (20.0-45.0) Monocytes (%) (Auto) 8.2 % (1.0-10.0) Eosinophils (%) (Auto) 3.8 % (0.0-3.0) Basophils (%) (Auto) 0.9 % (0.0-2.0) Prothrombin Time 10.7 SEC (9.30-11.50) 10.9 SEC (9.30-11.50) Prothromb Time International Ratio 1.0 (0.9-1.1) 1.0 (0.9-1.1) Sodium Level 142 MMOL/L (136-145) Potassium Level 4.2 MMOL/L (3.5-5.1) Chloride Level 108 MMOL/L (98-107) Carbon Dioxide Level 30 MMOL/L (21-32) Anion Gap 4 mmol/L (5-15) Blood Urea Nitrogen 10 mg/dL (7-18) Creatinine 0.6 MG/DL (0.55-1.30) Estimat Glomerular Filtration Rate > 60 mL/min (>60) Glucose Level 120 MG/DL (74-106) Calcium Level 8.9 MG/DL (8.5-10.1) Vancomycin Level Trough 8.5 ug/mL (5.0-12.0) Laboratory Tests Test 10/22/18 05:05 10/22/18 08:52 Prothrombin Time 10.9 SEC (9.30-11.50) Prothromb Time International Ratio 1.0 (0.9-1.1) Vancomycin Level Trough 8.5 ug/mL (5.0-12.0) Current Medications Medications (Trade) Dose Ordered Sig/Kael Route PRN Reason Start Time Stop Time Status Last Admin Dose Admin Acetaminophen (Tylenol) 650 mg Q4H PRN ORAL Mild Pain/Temp > 100.5 10/21/18 09:00 11/20/18 08:59 10/22/18 05:50 Acetaminophen/ Hydrocodone Bitart ([place] 7.5/325) 1 tab Q4H PRN ORAL Mild Pain (Pain Scale 1-3) 10/20/18 07:45 10/27/18 07:44 10/22/18 09:18 Alprazolam (Xanax) 0.5 mg BID PRN ORAL For Anxiety 10/21/18 13:45 10/28/18 13:44 10/21/18 13:57 Amlodipine Besylate (Norvasc) 2.5 mg DAILYPRN PRN ORAL SBP>160 10/21/18 09:00 11/20/18 08:59 10/21/18 09:25 Atorvastatin Calcium (Lipitor) 20 mg QHS ORAL 10/20/18 21:00 11/19/18 20:59 10/21/18 21:33 Cefepime HCl 2 gm/ Dextrose 100 ml @ 200 mls/hr Q12HR IVPB 10/20/18 18:00 10/27/18 17:59 10/22/18 08:36 Dextrose (Dextrose 50%) 25 ml Q30M PRN IV Hypoglycemia 10/20/18 11:15 11/19/18 11:14 Dextrose (Dextrose 50%) 50 ml Q30M PRN IV Hypoglycemia 10/20/18 11:15 11/19/18 11:14 Dextrose/ Electrolytes 1,000 ml @ 75 mls/hr [id number] IV 10/20/18 11:00 11/19/18 10:59 10/22/18 03:12 Gabapentin (Neurontin) 300 mg BID ORAL 10/20/18 18:00 11/19/18 17:59 10/22/18 08:36 Morphine Sulfate (Morphine Sulfate) 1 mg Q4H PRN IVP Mild Pain (Pain Scale 1-3) 10/20/18 07:45 10/27/18 07:44 Morphine Sulfate (Morphine Sulfate) 2 mg Q4H PRN IVP Moderate Pain (Pain Scale 4-6) 10/20/18 07:45 10/27/18 07:44 10/22/18 12:31 Morphine Sulfate (Morphine Sulfate) 4 mg Q4H PRN IVP Severe Pain (Pain Scale 7-10) 10/20/18 07:45 10/27/18 07:44 10/21/18 17:58 Pantoprazole (Protonix) 40 mg Q12HR ORAL 10/20/18 21:00 11/19/18 20:59 10/22/18 08:36 Patient Own Medication (Patient's Own Med) 0.6 ea DAILY@1900 SUBQ 10/21/18 19:00 11/20/18 18:59 10/21/18 19:07 Patient Own Medication (Patient's Own Med) 1 ea ACBREAKFAST ORAL 10/21/18 06:30 11/20/18 06:29 10/22/18 07:03 Vancomycin HCl (Vanco rx to dose) 1 ea DAILY PRN MISC Per rx protocol 10/20/18 16:30 11/19/18 16:29 Vancomycin HCl/ Dextrose 275 ml @ 183.333 mls/hr Q12HR@1100,2300 IVPB 10/22/18 11:00 10/27/18 10:59 10/22/18 12:08 Siomara Sandoval MD Oct 22, 2018 14:41
[2018-10-22 16:00] VITALS: BP 136/61
[2018-10-22] MEDS: ceFAZolin sod 2 GM in D5W 55 ML IVPB SCH ×2 (16:33→23:30)
--- NOTE | 2018-10-22 19:30 | NUR ---
NURSE NOTES: Received report ALDEN Melvin and rounds made. Pt in bed, AOX4, denies any pain, no distress noted. Surgical dressing C/D/I, no distress noted. IV fluid infusing as ordered. Bed in lowest position and locked, side rails up x 2, call light within reach. Will continue to monitor.
[2018-10-22 20:00] VITALS: BP 129/59
--- NOTE | 2018-10-22 20:00 | NUR ---
HAND-OFF: Report given to Sriram Manuel RN.
--- NOTE | 2018-10-22 20:07 | Cardiology Progress Note ---
Assessment/Plan Assessment/Plan 1. right knee abcess now s/p I and D 2. Diabetes mellitus. 3. History of hypertension. 4. Obesity, status post gastric bypass surgery. 5. Status post knee replacement. 6. Hyperlipidemia. resume home meds dvt ppx walked today iv abx per id pt want to have home meds requests to go to snf bs seem ok will need snf duration of abx per id will need to send to snf can even get abx at snf if needed Subjective Cardiovascular: Denies: chest pain, lightheadedness, palpitations Respiratory: Denies: shortness of breath Gastrointestinal/Abdominal: Denies: abdomen distended Genitourinary: Denies: burning Subjective head ache Objective Last 24 Hour Vital Signs Date Time Temp Pulse Resp B/P (MAP) Pulse Ox O2 Delivery O2 Flow Rate FiO2 10/22/18 16:00 97.8 58 20 136/61 (86) 100 10/22/18 12:00 98.6 53 19 107/61 (76) 100 10/22/18 09:00 Room Air 10/22/18 08:00 97.8 59 20 131/65 (87) 100 10/22/18 04:00 97.1 71 18 138/67 (90) 98 10/22/18 00:00 97.9 74 18 132/65 (87) 98 10/21/18 21:00 Room Air General Appearance: no apparent distress, alert, obese Neck: supple Cardiovascular: normal rate Respiratory/Chest: lungs clear Abdomen: normal bowel sounds, non tender, soft Extremities: no swelling Intake and Output 10/21/18 10/22/18 18:59 06:59 Intake Total 1225 ml Output Total 650 ml 250 ml Balance -650 ml 975 ml Intake Oral 100 ml IV Total 1125 ml Output Urine Total 650 ml 250 ml # Voids 6 # Bowel Movements 1 Laboratory Tests Test 10/22/18 05:05 10/22/18 08:52 Prothrombin Time 10.9 SEC (9.30-11.50) Prothromb Time International Ratio 1.0 (0.9-1.1) Vancomycin Level Trough 8.5 ug/mL (5.0-12.0) Microbiology Date/Time Source Procedure Growth Status 10/20/18 06:30 Nasal Nares MRSA Culture - Final NO METHICILLIN RESISTANT STAPH AUREUS... Complete 10/20/18 08:06 Knee Right Gram Stain - Final Resulted 10/20/18 08:06 Knee Right Aerobic Culture - Preliminary NO GROWTH AFTER 48 HOURS Resulted 10/20/18 08:06 Knee Right Anaerobic Culture - Preliminary NO GROWTH AFTER 48 HOURS Resulted Peyman Villalta MD Oct 22, 2018 20:07
[2018-10-22] MEDS: Atorvastatin 20mg tab ORAL SCH (21:17)
[2018-10-23 00:02] VITALS: BP 132/60
[2018-10-23 04:00] VITALS: BP 109/66
[2018-10-23] MEDS: HYDROcodone/Acetamin 7.5/325 tab ORAL PRN ×3 (05:22→17:09)
[2018-10-23 06:26] LABS: BASOPHILS % (AUTO) 1.2 % (0.0-2.0); EOSINOPHILS % (AUTO) 4.1 % (0.0-3.0); HEMATOCRIT 31.7 % (37.0-47.0); HEMOGLOBIN 10.7 G/DL (12.0-16.0); LYMPHOCYTES % (AUTO) 39.9 % (20.0-45.0); MEAN CORPUSCULAR VOLUME 91 FL (80-99); MONOCYTES % (AUTO) 12.1 % (1.0-10.0); NEUTROPHILS % (AUTO) 42.7 % (45.0-75.0); PLATELET COUNT 150 K/UL (150-450); RED BLOOD COUNT 3.51 M/UL (4.20-5.40); RED CELL DISTRIBUTION WIDTH 12.3 % (11.6-14.8); WHITE BLOOD COUNT 7.3 K/UL (4.8-10.8)
[2018-10-23] MEDS: LINZESS 290 MCG ORAL SCH (06:30)
[2018-10-23 06:55] LABS: ANION GAP 5 mmol/L (5-15); BLOOD UREA NITROGEN 5 mg/dL (7-18); CARBON DIOXIDE 28 MMOL/L (21-32); CHLORIDE 110 MMOL/L (98-107); CREATININE 0.4 MG/DL (0.55-1.30); SODIUM 143 MMOL/L (136-145)
--- NOTE | 2018-10-23 07:20 | NUR ---
HAND-OFF: Report given to ALDEN Melvin. Pt in stable condition.
--- NOTE | 2018-10-23 07:25 | NUR ---
NURSE NOTES: Report received from Sriram Manuel RN, rounds made. Patient resting in semi-fowlers position in bed. Alert, oriented x4, calm. No s/s of hypo/hyperglycemia. No distress on RA, denies need for pain medication at this time, ice pack in place. IVF D5 1/2 +20KCL at 75 ml/hr infusing to RFA, site asymptomatic. Right knee dressing CDI. LLE SCD on. Encouraged/demonstrated IS use, will continue to remind patient. Call light in reach, bed in lowest position, will continue monitor.
[2018-10-23 08:00] VITALS: BP 126/70
[2018-10-23] MEDS: ceFAZolin sod 2 GM in D5W 55 ML IVPB SCH ×2 (10:03→17:09)
[2018-10-23 12:00] VITALS: BP 138/74
[2018-10-23] MEDS: D5 1/2NS w/KCl 20mEq 1,000 ML IV SCH (12:18)
--- NOTE | 2018-10-23 13:45 | NUR ---
DISCHARGE PLANNING USED EQUIPMENT SALES REPRESENTATIVE SPOKE WITH PATIENT AT BEDSIDE VIA HER NEPHEW WHO IS ALSO AT BEDSIDE REGARDING SNF PLACEMENT. PATIENT SAID SHE WAS AWARE AND IN AGREEMENT WITH SNF PLACEMENT USED EQUIPMENT SALES REPRESENTATIVE CONTACTED DR ENCISO REGARDING PLACEMENT AND WAS INSTRUCTED TO REFER TO [facility]
--- NOTE | 2018-10-23 13:49 | NUR ---
CASE MANAGEMENT:REVIEW 10/23/18 SI: POD #3 RT KNEE ABSCESS...S/P I&D 97.9 58 17 138/74 99% ON RA H/H-10.7/31.7 IS: IV ANCEF Q8HRS PROTONIX PO Q12 NEURONTIN PO BID IVF@75/HR NORCO PO Q4HRS PRN : MED/SURG STATUS DCP: REFERRED TO [facility]
--- NOTE | 2018-10-23 15:00 | NUR ---
NURSE NOTES: Patient assisted to shower. IV and Right knee dressing covered/secured with plastic to protect from water. Dressings remained CDI.
[2018-10-23 16:00] VITALS: BP 117/53
--- NOTE | 2018-10-23 17:43 | Cardiology Progress Note ---
Assessment/Plan Assessment/Plan 1. right knee abcess now s/p I and D 2. Diabetes mellitus. 3. History of hypertension. 4. Obesity, status post gastric bypass surgery. 5. Status post knee replacement. 6. Hyperlipidemia. resume home meds dvt ppx walked today iv abx per id on home meds bs seem ok await snf bs 104-150 duration of abx per id will need to send to snf can even get abx at snf if needed Subjective Cardiovascular: Denies: chest pain, lightheadedness, palpitations Respiratory: Denies: SOB with excertion Gastrointestinal/Abdominal: Denies: abdominal pain Genitourinary: Denies: burning Objective Last 24 Hour Vital Signs Date Time Temp Pulse Resp B/P (MAP) Pulse Ox O2 Delivery O2 Flow Rate FiO2 10/23/18 16:00 99.3 68 18 117/53 (74) 97 10/23/18 12:00 97.9 58 17 138/74 (95) 99 10/23/18 09:00 Room Air 10/23/18 08:00 98.2 55 18 126/70 (88) 98 10/23/18 04:00 97.8 56 18 109/66 (80) 98 10/23/18 00:02 98.2 60 18 132/60 (84) 97 10/22/18 21:00 Room Air 10/22/18 20:00 98.7 66 20 129/59 (82) 98 General Appearance: alert Neck: supple Cardiovascular: normal rate Respiratory/Chest: lungs clear Abdomen: normal bowel sounds, non tender, soft Extremities: no swelling Intake and Output 10/22/18 10/23/18 19:00 07:00 Intake Total 975 ml 1120 ml Balance 975 ml 1120 ml Intake Oral 300 ml 240 ml IV Total 675 ml 880 ml # Voids 1 5 Laboratory Tests Test 10/23/18 05:10 White Blood Count 7.3 K/UL (4.8-10.8) Red Blood Count 3.51 M/UL (4.20-5.40) L Hemoglobin 10.7 G/DL (12.0-16.0) L Hematocrit 31.7 % (37.0-47.0) L Mean Corpuscular Volume 91 FL (80-99) Mean Corpuscular Hemoglobin 30.5 PG (27.0-31.0) Mean Corpuscular Hemoglobin Concent 33.7 G/DL (32.0-36.0) Red Cell Distribution Width 12.3 % (11.6-14.8) Platelet Count 150 K/UL (150-450) Mean Platelet Volume 6.8 FL (6.5-10.1) Neutrophils (%) (Auto) 42.7 % (45.0-75.0) L Lymphocytes (%) (Auto) 39.9 % (20.0-45.0) Monocytes (%) (Auto) 12.1 % (1.0-10.0) H Eosinophils (%) (Auto) 4.1 % (0.0-3.0) H Basophils (%) (Auto) 1.2 % (0.0-2.0) Prothrombin Time 10.6 SEC (9.30-11.50) Prothromb Time International Ratio 1.0 (0.9-1.1) Sodium Level 143 MMOL/L (136-145) Potassium Level 4.0 MMOL/L (3.5-5.1) Chloride Level 110 MMOL/L (98-107) H Carbon Dioxide Level 28 MMOL/L (21-32) Anion Gap 5 mmol/L (5-15) Blood Urea Nitrogen 5 mg/dL (7-18) L Creatinine 0.4 MG/DL (0.55-1.30) L Estimat Glomerular Filtration Rate > 60 mL/min (>60) Glucose Level 106 MG/DL (74-106) Calcium Level 9.0 MG/DL (8.5-10.1) Peyman Villalta MD Oct 23, 2018 17:43
--- NOTE | 2018-10-23 18:15 | NUR ---
NURSE NOTES: Spoke to Marilyn at [facility]. Marilyn requested patient's information for admission. Faxed information to [facility]. (Fax #: , Marilyn phone #: )
--- NOTE | 2018-10-23 19:40 | NUR ---
HAND-OFF: Report given to Luis Angel RUANO.
--- NOTE | 2018-10-23 19:45 | NUR ---
NURSE NOTES: Pt lying in bed w/family at bedside, bed in lowest position, and call light within reach. Pt A&Ox4, VSS, and in no apparent distress at this time. IV site intact/asymptomatic w/IVF running and surgical dressing C/D/I. Will continue to monitor.
[2018-10-23 20:00] VITALS: BP 125/58
[2018-10-23] MEDS: Atorvastatin 20mg tab ORAL SCH (21:47)
[2018-10-24] VITALS: BP 102/56
[2018-10-24] MEDS: ceFAZolin sod 2 GM in D5W 55 ML IVPB SCH ×4 (00:01→23:57)
[2018-10-24 04:00] VITALS: BP 137/60
[2018-10-24] MEDS: HYDROcodone/Acetamin 7.5/325 tab ORAL PRN ×4 (04:30→20:48)
[2018-10-24] MEDS: LINZESS 290 MCG ORAL SCH (06:36)
--- NOTE | 2018-10-24 07:55 | NUR ---
NURSE NOTES: Report received from Luis Angel RUANO, rounds made. Patient resting in semi-fowlers position in bed. Alert, oriented x4, calm. No distress on RA, denies need for pain medication at this time. D5 1/2 +20KCL at 75 ml/hr infusing to RFA, without difficulty, bruise near IV site, skin intact. Right knee dressing remains CDI. CMS +, skin warm, wiggles, equal hand grasps/pedal pushes 4/5, pulses palpable. Encouraged IS. Call light in reach, bed in lowest position, will continue to monitor.
[2018-10-24 08:00] VITALS: BP 115/56
--- NOTE | 2018-10-24 08:00 | NUR ---
HAND-OFF: Report given to ALDEN Melvin.
[2018-10-24] MEDS: D5 1/2NS w/KCl 20mEq 1,000 ML IV SCH ×3 (08:20→15:20)
--- NOTE | 2018-10-24 11:09 | Cardiology Progress Note ---
Assessment/Plan Assessment/Plan 1. right knee abcess now s/p I and D 2. Diabetes mellitus. 3. History of hypertension. 4. Obesity, status post gastric bypass surgery. 5. Status post knee replacement. 6. Hyperlipidemia. on home meds dvt ppx walked today iv abx per id on home meds bs seem ok accepted at snf bs 90-114 duration of abx per id will need to send to snf can even get abx at snf if needed mesage left to discuss with id and ortho d/w social media marketing analyst romm at snf for transfer Subjective Cardiovascular: Denies: chest pain, lightheadedness, palpitations Respiratory: Denies: shortness of breath Gastrointestinal/Abdominal: Denies: abdominal pain Genitourinary: Denies: burning Objective Last 24 Hour Vital Signs Date Time Temp Pulse Resp B/P (MAP) Pulse Ox O2 Delivery O2 Flow Rate FiO2 10/24/18 08:00 98.0 63 19 115/56 (75) 100 10/24/18 04:00 97.5 52 18 137/60 (85) 99 10/24/18 00:00 98.4 56 18 102/56 (71) 98 10/23/18 21:00 Room Air 10/23/18 20:00 98.4 65 18 125/58 (80) 100 10/23/18 17:00 96.8 10/23/18 16:00 99.3 68 18 117/53 (74) 97 10/23/18 12:00 97.9 58 17 138/74 (95) 99 General Appearance: no apparent distress, alert Neck: supple Cardiovascular: normal rate, regular rhythm Respiratory/Chest: lungs clear Abdomen: normal bowel sounds, non tender, soft Extremities: no swelling Intake and Output 10/23/18 10/24/18 19:00 07:00 Intake Total 1035 ml 1280 ml Balance 1035 ml 1280 ml Intake Oral 510 ml 400 ml IV Total 525 ml 880 ml # Voids 4 3 # Bowel Movements 2 Laboratory Tests Test 10/24/18 07:20 Prothrombin Time 10.7 SEC (9.30-11.50) Prothromb Time International Ratio 1.0 (0.9-1.1) Peyman Villalta MD Oct 24, 2018 11:09
[2018-10-24 12:00] VITALS: BP 133/53
--- NOTE | 2018-10-24 14:05 | Infectious Diseases Prog Note ---
Assessment/Plan Assessment/Plan ASSESSMENT AND PLAN: 1. right knee abscess, s/p I/D - intra-operative culture negative to date - ancef - day # 4 abx post-op - length of abx tx depends if osteo possible - monitor labs - ortho f/u - await full operative noted - d/w Dr. Villalta 3. Diabetes. 4. Hypertension. 5. Blood sugar and blood pressure treatment per primary. 6. Possible gastroesophageal reflux disease number. 7. Possible dyslipidemia. 8. Possible neuropathy. 9. No known allergies. 10. Social history is positive for smoking in the past. 11. MAR was noted. 12. Case was discussed with RN. 13. Family history is noncontributory. 14. Continue treatment per primary consultants. Subjective Constitutional: Denies: fever HEENT: Denies: congestion Respiratory: Denies: shortness of breath Cardiovascular: Denies: chest pain Gastrointestinal/Abdominal: Denies: nausea, vomiting, diarrhea Genitourinary: Reports: other - no bradley Neurologic: Denies: headache Psychiatric: Denies: depression Skin: Denies: rash Hematologic: Denies: bleeding Musculoskeletal: Reports: pain - right knee pain controlled Allergies: Coded Allergies: No Known Allergies (Unverified , 09/09/17) Objective Vital Signs Last 24 Hour Vital Signs Date Time Temp Pulse Resp B/P (MAP) Pulse Ox O2 Delivery O2 Flow Rate FiO2 10/24/18 09:00 Room Air 10/24/18 08:00 98.0 63 19 115/56 (75) 100 10/24/18 04:00 97.5 52 18 137/60 (85) 99 10/24/18 00:00 98.4 56 18 102/56 (71) 98 10/23/18 21:00 Room Air 10/23/18 20:00 98.4 65 18 125/58 (80) 100 10/23/18 17:00 96.8 10/23/18 16:00 99.3 68 18 117/53 (74) 97 Height (Feet): 4 Height (Inches): 11.00 Weight (Pounds): 172 General Appearance: no acute distress HEENT: normocephalic, atraumatic, anicteric, mucous membranes moist Respiratory/Chest: lungs clear, normal breath sounds, no respiratory distress, no accessory muscle use Cardiovascular: normal rate, regular rhythm, no gallop/murmur Abdomen: normal bowel sounds, soft, non tender, no organomegaly, non distended Genitourinary: other - no bradley Extremities: no cyanosis Skin: no rash Neurologic/Psychiatric: warehouse person II-XII grossly normal, alert, oriented x 3, responsive Lymphatic: no neck adenopathy Musculoskeletal: other - right knee covered Objective none Microbiology Date/Time Source Procedure Growth Status 10/20/18 06:30 Nasal Nares MRSA Culture - Final NO METHICILLIN RESISTANT STAPH AUREUS... Complete 10/20/18 08:06 Knee Right Gram Stain - Final Complete 10/20/18 08:06 Knee Right Aerobic Culture - Final NO GROWTH Complete 10/20/18 08:06 Knee Right Anaerobic Culture - Final NO GROWTH Complete Labs Test 10/22/18 05:05 10/22/18 08:52 10/23/18 05:10 10/24/18 07:20 Prothrombin Time 10.9 SEC (9.30-11.50) 10.6 SEC (9.30-11.50) 10.7 SEC (9.30-11.50) Prothromb Time International Ratio 1.0 (0.9-1.1) 1.0 (0.9-1.1) 1.0 (0.9-1.1) Vancomycin Level Trough 8.5 ug/mL (5.0-12.0) White Blood Count 7.3 K/UL (4.8-10.8) Red Blood Count 3.51 M/UL (4.20-5.40) Hemoglobin 10.7 G/DL (12.0-16.0) Hematocrit 31.7 % (37.0-47.0) Mean Corpuscular Volume 91 FL (80-99) Mean Corpuscular Hemoglobin 30.5 PG (27.0-31.0) Mean Corpuscular Hemoglobin Concent 33.7 G/DL (32.0-36.0) Red Cell Distribution Width 12.3 % (11.6-14.8) Platelet Count 150 K/UL (150-450) Mean Platelet Volume 6.8 FL (6.5-10.1) Neutrophils (%) (Auto) 42.7 % (45.0-75.0) Lymphocytes (%) (Auto) 39.9 % (20.0-45.0) Monocytes (%) (Auto) 12.1 % (1.0-10.0) Eosinophils (%) (Auto) 4.1 % (0.0-3.0) Basophils (%) (Auto) 1.2 % (0.0-2.0) Sodium Level 143 MMOL/L (136-145) Potassium Level 4.0 MMOL/L (3.5-5.1) Chloride Level 110 MMOL/L (98-107) Carbon Dioxide Level 28 MMOL/L (21-32) Anion Gap 5 mmol/L (5-15) Blood Urea Nitrogen 5 mg/dL (7-18) Creatinine 0.4 MG/DL (0.55-1.30) Estimat Glomerular Filtration Rate > 60 mL/min (>60) Glucose Level 106 MG/DL (74-106) Calcium Level 9.0 MG/DL (8.5-10.1) Laboratory Tests Test 10/24/18 07:20 Prothrombin [place] International Ratio 1.0 (0.9-1.1) Current Medications Medications (Trade) Dose Ordered Sig/Kael Route PRN Reason Start Time Stop Time Status Last Admin Dose Admin Acetaminophen (Tylenol) 650 mg Q4H PRN ORAL Mild Pain/Temp > 100.5 10/21/18 09:00 11/20/18 08:59 10/23/18 21:52 Acetaminophen/ Hydrocodone Bitart ([place] 7.5/325) 1 tab Q4H PRN ORAL Mild Pain (Pain Scale 1-3) 10/20/18 07:45 10/27/18 07:44 10/24/18 11:11 Alprazolam (Xanax) 0.5 mg BID PRN ORAL For Anxiety 10/21/18 13:45 10/28/18 13:44 10/21/18 13:57 Amlodipine Besylate (Norvasc) 2.5 mg DAILYPRN PRN ORAL SBP>160 10/21/18 09:00 11/20/18 08:59 10/21/18 09:25 Atorvastatin Calcium (Lipitor) 20 mg QHS ORAL 10/20/18 21:00 11/19/18 20:59 10/23/18 21:47 Cefazolin Sodium 2 gm/Dextrose 55 ml @ 110 mls/hr Q8H IVPB 10/22/18 16:00 10/29/18 15:59 10/24/18 08:58 Dextrose (Dextrose 50%) 25 ml Q30M PRN IV Hypoglycemia 10/20/18 11:15 11/19/18 11:14 Dextrose (Dextrose 50%) 50 ml Q30M PRN IV Hypoglycemia 10/20/18 11:15 11/19/18 11:14 Dextrose/ Electrolytes 1,000 ml @ 75 mls/hr [id number] IV 10/20/18 11:00 11/19/18 10:59 10/24/18 00:00 Gabapentin (Neurontin) 300 mg BID ORAL 10/20/18 18:00 11/19/18 17:59 10/24/18 08:58 Morphine Sulfate (Morphine Sulfate) 1 mg Q4H PRN IVP Mild Pain (Pain Scale 1-3) 10/20/18 07:45 10/27/18 07:44 Morphine Sulfate (Morphine Sulfate) 2 mg Q4H PRN IVP Moderate Pain (Pain Scale 4-6) 10/20/18 07:45 10/27/18 07:44 10/22/18 12:31 Morphine Sulfate (Morphine Sulfate) 4 mg Q4H PRN IVP Severe Pain (Pain Scale 7-10) 10/20/18 07:45 10/27/18 07:44 10/21/18 17:58 Pantoprazole (Protonix) 40 mg Q12HR ORAL 10/20/18 21:00 11/19/18 20:59 10/24/18 08:58 Patient Own Medication (Patient's Own Med) 0.6 ea DAILY@1900 SUBQ 10/21/18 19:00 11/20/18 18:59 10/23/18 19:28 Patient Own Medication (Patient's Own Med) 1 ea ACBREAKFAST ORAL 10/21/18 06:30 11/20/18 06:29 10/24/18 06:36 Siomara Sandoval MD Oct 24, 2018 14:05
[2018-10-24 16:00] VITALS: BP 124/57
--- NOTE | 2018-10-24 16:00 | NUR ---
NURSE NOTES: Patient on CPM 0-70 degrees, requested to be taken off due to discomfort at 1445. Medicated patient as ordered, ice pack applied. Patient refused to resume CPM at this time. Will continue to monitor.
[2018-10-24] MEDS ORDERED: Tubing IV Secondary IV ONE (16:39)
--- NOTE | 2018-10-24 19:00 | NUR ---
NURSE NOTES: Dressing changed to right knee, evie noted, intact, no redness/swelling, drainage or bruising noted. Applied 4x4 with tegederm.
--- NOTE | 2018-10-24 19:25 | NUR ---
HAND-OFF: Report given to Luis Angel RUANO.
--- NOTE | 2018-10-24 19:30 | NUR ---
NURSE NOTES: Pt lying in bed w/bed in lowest position and call light within reach. Pt A&Ox4, VSS, and in no apparent distress. IV site intact/asymptomatic w/IVF infusing and surgical dressing C/D/I. Pt has no concerns or complaints at this time. Will continue to monitor.
[2018-10-24 20:00] VITALS: BP 123/69
[2018-10-24] MEDS: Atorvastatin 20mg tab ORAL SCH (20:44)
[2018-10-25] VITALS: BP 113/63
--- NOTE | 2018-10-25 03:45 | Operative Note - Dictated ---
DATE OF OPERATION: 10/24/2018 NOTE: POOR AUDIO PREOPERATIVE DIAGNOSIS: infection of knee, chronic, status post total knee replacement 6 months ago. POSTOPERATIVE DIAGNOSIS: infection of knee, chronic, status post total knee replacement 6 months ago. PROCEDURE: Incision and drainage, abscess. SURGEON: Derrek Guy M.D. VENEER SORTER: Unknown. BLACK POWDER GLAZING OPERATOR: None. PREOP NOTE: This is a lady who . She has been doing well . There is a stitch abscess not to cause any reaction . I opted to do an I and D . I explained to the patient surgery and risks being infection, bleeding, anesthetic risks, neurovascular damage, DVT, PE, failure of the operation. The patient agreed, consents were obtained. OR NOTE: Under the benefit of endotracheal intubation, general anesthetic, the patient's knee was prepped and draped in the appropriate manner. Incision was made and incised the stitch abscess, antibiotic impregnated fluid. The patient went to recovery room in stable condition. the subcutaneous tissue . There were no complications. . Derrek Guy M.D. DR: KERWIN JOB#: [id number] CC:
[2018-10-25 04:00] VITALS: BP 105/61
[2018-10-25] MEDS: D5 1/2NS w/KCl 20mEq 1,000 ML IV SCH ×2 (04:30→11:00)
[2018-10-25] MEDS: LINZESS 290 MCG ORAL SCH (06:14)
--- NOTE | 2018-10-25 07:15 | NUR ---
NURSE NOTES: Report received from Luis Angel RUANO, rounds made. Patient resting in semi-fowlers position, in bed. Alert, oriented x4, calm. No distress on RA, denies need for pain medication, no NV, no s/s of hypo/hyperglycemia. D5 1/2 +20KCL at 75 ml/hr to RH, infusing without difficulty as ordered. Right knee dressing CDI. Ice pack applied. CMS +, skin warm, wiggles, pulses palpable, hand grasps/pedal pushes equal, strong 4/5. Reinforced IS use. Call light in reach, bed in lowest position, will continue to monitor.
--- NOTE | 2018-10-25 07:28 | NUR ---
HAND-OFF: Report given to ALDEN Melvin.
[2018-10-25 08:00] VITALS: BP 109/64
[2018-10-25 08:46] LABS: BASOPHILS % (AUTO) 1.1 % (0.0-2.0); EOSINOPHILS % (AUTO) 5.7 % (0.0-3.0); HEMATOCRIT 31.4 % (37.0-47.0); HEMOGLOBIN 10.6 G/DL (12.0-16.0); LYMPHOCYTES % (AUTO) 45.6 % (20.0-45.0); MEAN CORPUSCULAR VOLUME 90 FL (80-99); MONOCYTES % (AUTO) 8.8 % (1.0-10.0); NEUTROPHILS % (AUTO) 38.8 % (45.0-75.0); PLATELET COUNT 160 K/UL (150-450); RED BLOOD COUNT 3.48 M/UL (4.20-5.40); RED CELL DISTRIBUTION WIDTH 12.4 % (11.6-14.8); WHITE BLOOD COUNT 6.1 K/UL (4.8-10.8)
[2018-10-25] MEDS ORDERED: D5NS 1000ml IV ONE (08:49)
[2018-10-25] MEDS ORDERED: Tubing IV Secondary IV ONE (08:49)
[2018-10-25 09:03] LABS: ANION GAP 6 mmol/L (5-15); BLOOD UREA NITROGEN 7 mg/dL (7-18); CALCIUM 9.3 MG/DL (8.5-10.1); CARBON DIOXIDE 28 MMOL/L (21-32); CHLORIDE 108 MMOL/L (98-107); CREATININE 0.5 MG/DL (0.55-1.30); POTASSIUM 3.9 MMOL/L (3.5-5.1); SODIUM 142 MMOL/L (136-145)
[2018-10-25] MEDS: ceFAZolin sod 2 GM in D5W 55 ML IVPB SCH ×2 (09:12→16:48)
[2018-10-25] MEDS: HYDROcodone/Acetamin 7.5/325 tab ORAL PRN ×2 (10:14→20:55)
[2018-10-25 12:00] VITALS: BP 107/89
--- NOTE | 2018-10-25 12:47 | Cardiology Progress Note ---
Assessment/Plan Assessment/Plan 1. right knee abcess now s/p I and D 2. Diabetes mellitus. 3. History of hypertension. 4. Obesity, status post gastric bypass surgery. 5. Status post knee replacement. 6. Hyperlipidemia. on home meds dvt ppx walked today iv abx per id on home meds bs seem ok accepted at [facility] bs [id number] 1 week post op iv ab last tdose tomorrwo po abx for 1 week Subjective Cardiovascular: Denies: chest pain, lightheadedness Respiratory: Denies: SOB with excertion Gastrointestinal/Abdominal: Denies: abdominal pain Genitourinary: Denies: burning Objective Last 24 Hour Vital Signs Date Time Temp Pulse Resp B/P (MAP) Pulse Ox O2 Delivery O2 Flow Rate FiO2 10/25/18 08:00 97.7 64 18 109/64 (79) 99 10/25/18 04:00 98.4 56 18 105/61 (76) 100 10/25/18 00:00 98.3 65 18 113/63 (80) 100 10/24/18 21:00 Room Air 10/24/18 20:00 98.1 62 18 123/69 (87) 100 10/24/18 16:00 97.2 51 18 124/57 (79) 99 General Appearance: no apparent distress, alert Neck: supple Cardiovascular: normal rate Respiratory/Chest: lungs clear Abdomen: normal bowel sounds, non tender, soft Extremities: no swelling Intake and Output 10/24/18 10/25/18 19:00 07:00 Intake Total 975 ml 1417.5 ml Balance 975 ml 1417.5 ml Intake Oral 300 ml 500 ml IV Total 675 ml 917.5 ml # Voids 2 2 # Bowel Movements 1 Laboratory Tests Test 10/25/18 07:31 White Blood Count 6.1 K/UL (4.8-10.8) Red Blood Count 3.48 M/UL (4.20-5.40) L Hemoglobin 10.6 G/DL (12.0-16.0) L Hematocrit 31.4 % (37.0-47.0) L Mean Corpuscular Volume 90 FL (80-99) Mean Corpuscular Hemoglobin 30.5 PG (27.0-31.0) Mean Corpuscular Hemoglobin Concent 33.8 G/DL (32.0-36.0) Red Cell Distribution Width 12.4 % (11.6-14.8) Platelet Count 160 K/UL (150-450) Mean Platelet Volume 6.3 FL (6.5-10.1) L Neutrophils (%) (Auto) 38.8 % (45.0-75.0) L Lymphocytes (%) (Auto) 45.6 % (20.0-45.0) H Monocytes (%) (Auto) 8.8 % (1.0-10.0) Eosinophils (%) (Auto) 5.7 % (0.0-3.0) H Basophils (%) (Auto) 1.1 % (0.0-2.0) Sodium Level 142 MMOL/L (136-145) Potassium Level 3.9 MMOL/L (3.5-5.1) Chloride Level 108 MMOL/L (98-107) H Carbon Dioxide Level 28 MMOL/L (21-32) Anion Gap 6 mmol/L (5-15) Blood Urea Nitrogen 7 mg/dL (7-18) Creatinine 0.5 MG/DL (0.55-1.30) L Estimat Glomerular Filtration Rate > 60 mL/min (>60) Glucose Level 91 MG/DL (74-106) Calcium Level 9.3 MG/DL (8.5-10.1) Peyman Villalta MD Oct 25, 2018 12:46
[2018-10-25 16:17] VITALS: BP 130/6
--- NOTE | 2018-10-25 19:25 | NUR ---
HAND-OFF: Report given to Irene RUANO.
--- NOTE | 2018-10-25 19:53 | NUR ---
NURSE NOTES: Received patient in bed, awake, alert, oriented, no acute distress noted, VSS afebrile, call light is within reach, bed is in low position locked and alarm is on. Will continue to monitor for safety and comfort.
[2018-10-25 20:00] VITALS: BP 140/78
[2018-10-25] MEDS: Atorvastatin 20mg tab ORAL SCH (20:55)
[2018-10-25] MEDS: ALPRAZolam 0.5mg tab ORAL PRN ×2 (20:55)
[2018-10-26] VITALS (7 sets, daily range): BP systolic 89–138; BP diastolic 46–89
[2018-10-26] MEDS: ceFAZolin sod 2 GM in D5W 55 ML IVPB SCH ×3 (00:06→16:17)
[2018-10-26] MEDS: D5 1/2NS w/KCl 20mEq 1,000 ML IV SCH (00:09)
[2018-10-26] MEDS: LINZESS 290 MCG ORAL SCH (06:02)
--- NOTE | 2018-10-26 06:55 | NUR ---
HAND-OFF: Report given to Yohana RUANO.
--- NOTE | 2018-10-26 07:30 | NUR ---
NURSE NOTES: Patient is in bed asleep but arousable to verbal stimuli. Stable. No facial grimacing or signs of discomfort noted. Patient in bed in locked and lowest position with call light within reach. Will continue to monitor.
--- NOTE | 2018-10-26 09:23 | NUR ---
DISCHARGE PLANNING: NOTE PATIENT HAS BEEN ACCEPTED TO ROOM 19P AT [facility] PER GUMARO. DR ENCISO HAS BEEN MADE AWARE. AWAITING DC ORDER.
--- NOTE | 2018-10-26 10:06 | NUR ---
DISCHARGE DISPOSITION: PLEASE READ PATIENT TO BE DISCHARGED TO [facility] AFTER ANCEF DOSE [address] ROOM 19P T: [phone]>> CALL RN SUP FOR REPORT [facility] ETA 1700 SKILLED TRANSFER REPORT PROVIDED TO NURSING PATIENT IS AGREEABLE TO DC PLAN IS AWARE OF THE DC PLAN
[2018-10-26] MEDS: HYDROcodone/Acetamin 7.5/325 tab ORAL PRN (11:21)
--- NOTE | 2018-10-26 14:14 | NUR ---
NURSE NOTES: Report given to ALDEN Lu at [facility].
--- NOTE | 2018-10-26 14:40 | Infectious Diseases Prog Note ---
Assessment/Plan Assessment/Plan ASSESSMENT AND PLAN: 1. right knee abscess, s/p I/D, stitch abscess per operative report - intra-operative culture negative to date - ancef - day # 6 abx post-op - monitor labs - plan on one week iv ancef after surgery then po keflex x one week - d/w Dr. Villalta who also communicated with ortho and we are all in agreement 3. Diabetes. 4. Hypertension. 5. Blood sugar and blood pressure treatment per primary. 6. Possible gastroesophageal reflux disease number. 7. Possible dyslipidemia. 8. Possible neuropathy. 9. No known allergies. 10. Social history is positive for smoking in the past. 11. MAR was noted. 12. Case was discussed with RN. 13. Family history is noncontributory. 14. Continue treatment per primary consultants. Subjective Constitutional: Denies: fever HEENT: Denies: congestion Respiratory: Denies: shortness of breath Cardiovascular: Denies: chest pain Gastrointestinal/Abdominal: Denies: nausea, vomiting, diarrhea Genitourinary: Reports: other - no bradley ; Denies: dysuria, hematuria Neurologic: Denies: headache Psychiatric: Denies: depression Skin: Denies: rash Hematologic: Denies: bleeding Musculoskeletal: Reports: pain - right knee pain controlled Allergies: Coded Allergies: No Known Allergies (Unverified , 09/09/17) Objective Vital Signs Last 24 Hour Vital Signs Date Time Temp Pulse Resp B/P (MAP) Pulse Ox O2 Delivery O2 Flow Rate FiO2 10/26/18 12:00 98.0 63 18 111/58 (75) 98 10/26/18 09:00 Room Air 10/26/18 08:00 98.2 71 18 89/46 (60) 10/26/18 05:08 98.4 88 22 129/78 (95) 10/26/18 05:06 98.0 78 18 138/78 (98) 10/26/18 04:00 97.8 88 18 138/89 (105) 10/26/18 00:00 97.0 87 18 129/78 (95) 10/25/18 21:00 Room Air 10/25/18 20:00 97.2 80 20 140/78 (98) 10/25/18 16:17 98.4 55 19 130/6 (47) 100 Height (Feet): 4 Height (Inches): 11.00 Weight (Pounds): 172 General Appearance: no acute distress HEENT: normocephalic, atraumatic, anicteric, mucous membranes moist Respiratory/Chest: lungs clear, normal breath sounds, no respiratory distress, no accessory muscle use Cardiovascular: normal rate, regular rhythm, no gallop/murmur, no JVD Abdomen: normal bowel sounds, soft, non tender, no organomegaly, non distended Genitourinary: other - no bradley, no cva pain Extremities: no cyanosis Skin: no rash Neurologic/Psychiatric: posting specialist II-XII grossly normal, alert, oriented x 3 Lymphatic: no neck adenopathy Musculoskeletal: no effusion, other - right knee covered Objective none Microbiology Date/Time Source Procedure Growth Status 10/20/18 06:30 Nasal Nares MRSA Culture - Final NO METHICILLIN RESISTANT STAPH AUREUS... Complete 10/20/18 08:06 Knee Right Gram Stain - Final Complete 10/20/18 08:06 Knee Right Aerobic Culture - Final NO GROWTH Complete 10/20/18 08:06 Knee Right Anaerobic Culture - Final NO GROWTH Complete Labs Test 10/24/18 07:20 10/25/18 07:31 Prothrombin Time 10.7 SEC (9.30-11.50) Prothromb Time International Ratio 1.0 (0.9-1.1) White Blood Count 6.1 K/UL (4.8-10.8) Red Blood Count 3.48 M/UL (4.20-5.40) Hemoglobin 10.6 G/DL (12.0-16.0) Hematocrit 31.4 % (37.0-47.0) Mean Corpuscular Volume 90 FL (80-99) Mean Corpuscular Hemoglobin 30.5 PG (27.0-31.0) Mean Corpuscular Hemoglobin Concent 33.8 G/DL (32.0-36.0) Red Cell Distribution Width 12.4 % (11.6-14.8) Platelet Count 160 K/UL (150-450) Mean Platelet Volume 6.3 FL (6.5-10.1) Neutrophils (%) (Auto) 38.8 % (45.0-75.0) Lymphocytes (%) (Auto) 45.6 % (20.0-45.0) Monocytes (%) (Auto) 8.8 % (1.0-10.0) Eosinophils (%) (Auto) 5.7 % (0.0-3.0) Basophils (%) (Auto) 1.1 % (0.0-2.0) Sodium Level 142 MMOL/L (136-145) Potassium Level 3.9 MMOL/L (3.5-5.1) Chloride Level 108 MMOL/L (98-107) Carbon Dioxide Level 28 MMOL/L (21-32) Anion Gap 6 mmol/L (5-15) Blood Urea Nitrogen 7 mg/dL (7-18) Creatinine 0.5 MG/DL (0.55-1.30) Estimat Glomerular Filtration Rate > 60 mL/min (>60) Glucose Level 91 MG/DL (74-106) Calcium Level 9.3 MG/DL (8.5-10.1) Current Medications Medications (Trade) Dose Ordered Sig/Kael Route PRN Reason Start Time Stop Time Status Last Admin Dose Admin Acetaminophen (Tylenol) 650 mg Q4H PRN ORAL Mild Pain/Temp > 100.5 10/21/18 09:00 11/20/18 08:59 10/23/18 21:52 Acetaminophen/ Hydrocodone Bitart ([place] 7.5/325) 1 tab Q4H PRN ORAL Mild Pain (Pain Scale 1-3) 10/20/18 07:45 10/27/18 07:44 10/26/18 11:21 Alprazolam (Xanax) 0.5 mg BID PRN ORAL For Anxiety 10/21/18 13:45 10/28/18 13:44 10/25/18 20:55 Amlodipine Besylate (Norvasc) 2.5 mg DAILYPRN PRN ORAL SBP>160 10/21/18 09:00 11/20/18 08:59 10/21/18 09:25 Atorvastatin Calcium (Lipitor) 20 mg QHS ORAL 10/20/18 21:00 11/19/18 20:59 10/25/18 20:55 Cefazolin Sodium 2 gm/Dextrose 55 ml @ 110 mls/hr Q8H IVPB 10/22/18 16:00 10/29/18 15:59 10/26/18 08:08 Dextrose (Dextrose 50%) 25 ml Q30M PRN IV Hypoglycemia 10/20/18 11:15 11/19/18 11:14 Dextrose (Dextrose 50%) 50 ml Q30M PRN IV Hypoglycemia 10/20/18 11:15 11/19/18 11:14 Gabapentin (Neurontin) 300 mg BID ORAL 10/20/18 18:00 11/19/18 17:59 10/26/18 08:08 Morphine Sulfate (Morphine Sulfate) 1 mg Q4H PRN IVP Mild Pain (Pain Scale 1-3) 10/20/18 07:45 10/27/18 07:44 Morphine Sulfate (Morphine Sulfate) 2 mg Q4H PRN IVP Moderate Pain (Pain Scale 4-6) 10/20/18 07:45 10/27/18 07:44 10/22/18 12:31 Morphine Sulfate (Morphine Sulfate) 4 mg Q4H PRN IVP Severe Pain (Pain Scale 7-10) 10/20/18 07:45 10/27/18 07:44 10/21/18 17:58 Pantoprazole (Protonix) 40 mg Q12HR ORAL 10/20/18 21:00 11/19/18 20:59 10/26/18 08:08 Patient Own Medication (Patient's Own Med) 0.6 ea DAILY@1900 SUBQ 10/21/18 19:00 11/20/18 18:59 10/25/18 18:55 Patient Own Medication (Patient's Own Med) 1 ea ACBREAKFAST ORAL 10/21/18 06:30 11/20/18 06:29 10/26/18 06:02 Siomara Sandoval MD Oct 26, 2018 14:40
--- NOTE | 2018-10-26 18:00 | NUR ---
NURSE NOTES: Patient sent to [facility] as ordered. Patient assisted onto [facility] by 2EMT from [facility]. Patient is stable. Denies pain or SOB. Surgical dressing changed today. Clean, dry, and intact. All medications given to patient. Complete transfer packet given to EMT. All belongings remain with patient's . Skin is clean, dry, and intact. No IV access.
--- NOTE | 2018-10-28 07:54 | Discharge Summary ---
Discharge Summary Hospital Course Date of Admission Oct 20, 2018 at 06:14 Date of Discharge Oct 26, 2018 at 18:00 Admitting Diagnosis R knee abscess , s/p Right TKR 6 months ago Reason for Hospitalization: elective surgery HPI Tiffany Marrufo is a 63 year old female who was admitted on Oct 20, 2018 at 06: 14 for Status Post Right Total Knee Replacement Consultations -ID Dr. Villalta-IM /cardio Procedures s/p 11/19/[address] Guy,Derrek I&D Right knee abscess Hospital Course FINAL DIAGNOSES Right knee abscess history of total knee replacement 6 months ago status post incision and drainage right knee abscess Diabetes mellitus. History of hypertension. Obesity, status post gastric bypass surgery. Hyperlipidemia. Discharge Medications Continued Medications: Aspirin* (Aspir 81*) 81 Mg Tablet. 81 MG ORAL DAILY, TAB (This prescription has been renewed) Atorvastatin Calcium* (Atorvastatin Calcium*) 20 Mg Tablet 20 MG ORAL BEDTIME, TAB (This prescription has been renewed) Gabapentin* (Gabapentin*) 100 Mg Capsule 200 MG ORAL BIDAC, CAP (This prescription has been renewed) Insulin Glargine (Lantus) 100 Unit/1 Ml Insuln.pen 30 SUBQ DAILY, #1 EA 0 Refills (This prescription has been renewed) Liraglutide (Victoza 2-Herberth) 0.6 Mg/0.1 Ml Pen.injctr 0.6 MG SUBQ DAILY, EA 0 Refills (This prescription has been renewed) Omeprazole (Omeprazole) 20 Mg Capsule.dr 20 MG ORAL DAILY, CAP (This prescription has been renewed) Discharge Condition Upon Discharge: stable Discharge Disposition Patient was discharged to SNF/Subacute Facility(03) Discharge Instructions Discharge Instructions Special Instructions I have been assigned to complete a D/C Summary on this account. I was not involved in the patient management Magdalene Ceron NP Oct 28, 2018 07:54
== END 2018-10-26 18:00 | DRG 857 ==
LOC: SDSOVERFLO 06:14 → 3E 09:57
PROC: 0J9N0ZZ Drainage of Right Lower Leg Subcutaneous Tissue and Fascia, Open Approach (ICD-10-PCS; principal; 2018-10-24)
DX: T81.41XA Infection following a procedure, superficial incisional surgical site, initial encounter (principal); L02.415 Cutaneous abscess of right lower limb; Z96.651 Presence of right artificial knee joint; E11.9 Type 2 diabetes mellitus without complications; I10 Essential (primary) hypertension; E78.5 Hyperlipidemia, unspecified; E66.9 Obesity, unspecified; Z98.84 Bariatric surgery status; Z79.4 Long term (current) use of insulin; F17.200 Nicotine dependence, unspecified, uncomplicated; G62.9 Polyneuropathy, unspecified; Z68.30 Body mass index [BMI] 30.0-30.9, adult
CPT/HCPCS: 36415; 80048; 80202; 82962; 85025; 85610; 87070; 87075; 87081; 87205; 93005; 94003; 94150; 94664; J1815; J2405; J2765